=== PATIENT | male | born 1955 | race Caucasian/White ===

== ENCOUNTER → 2016-05-08 | Outpatient (CLI) | payer MEDICARE, BC | LOC: MW.CHIM 08:00 | PROVIDERS: ATTEND Internal Medicine | DX: Z51.81 Encounter for therapeutic drug level monitoring (principal); Z79.01 Long term (current) use of anticoagulants; I48.91 Unspecified atrial fibrillation | CPT/HCPCS: 85610; 99211 ==

== ENCOUNTER → 2016-06-16 | Outpatient (CLI) | payer MEDICARE, BC | LOC: MW.CHFP 11:09 | PROVIDERS: ATTEND Physician Assistant | DX: R31.9 Hematuria, unspecified (principal); N30.90 Cystitis, unspecified without hematuria | CPT/HCPCS: 81001; 87086 ==

== ENCOUNTER 2017-07-27 04:09 | Emergency (ER) | payer MEDICARE, BC ==
[2017-07-27] MEDS ORDERED: Sodium Chloride 0.9% 1,000 ML IV ONE (04:12)
[2017-07-27] MEDS ORDERED: Sodium Chloride 0.9% 2.5 ML Syringe FLUSH PRN ×2 (04:12)
[2017-07-27] MEDS ORDERED: Sodium Chloride 0.9% 10 ML Syringe FLUSH PRN (04:12)
[2017-07-27] MEDS ORDERED: Aspirin 81 MG Tab.Chew PO ONE (04:12)
[2017-07-27] MEDS ORDERED: Atropine 1 MG/ML SDV IVPUSH ONE (04:19)
[2017-07-27] MEDS ORDERED: EPINEPHrine 1 MG in Dextrose 5% in Water 99 ML IV SCH ×2 (04:30)
--- NOTE | 2017-07-27 04:38 | EDM.PDOC ---
ED HPI GENERAL MEDICAL PROBLEM - General Chief Complaint: Cardiovascular Problem Stated Complaint: CHEST PAIN Time Seen by Provider: 07/27/17 04:15 Source of Information: Reports: Patient History Limitations: Reports: No Limitations - History of Present Illness INITIAL COMMENTS - FREE TEXT/NARRATIVE: HISTORY AND PHYSICAL: History of present illness: 61-year-old male presenting to the emergency department by EMS secondary to shortness of breath. Patient states he was sitting in his chair approximately 1 AM this morning began to have some shortness of breath as well as "feeling weird/ill". Up until this he been feeling his normal self and denies any recent illness. He denies any chest pain with this shortness of breath but has felt somewhat diaphoretic area he denies any nausea, vomiting, diarrhea, or abdominal pain. In route to ED patient was found to be bradycardic with a heart rate of 29. Blood pressure was adequate at 110. On presentation emergency department patient still had a blood pressure of 1 teens systolic and was given 0.5 of atropine which increased his heart rate to mid 40s. Secondary above patient was transcutaneously paced at 60 bpm with 40 MHz. CBC, CMP, troponin, UA were all ordered. Initial EKG showed a Mobitz type II secondary AV block as well as possible inferior acute infarct. We also started a epinephrine drip at 2 mcg. Review of systems: As per history of present illness and below otherwise all systems reviewed and negative. Past medical history: As per history of present illness and as reviewed below otherwise noncontributory. Surgical history: As per history of present illness and as reviewed below otherwise noncontributory. Social history: No reported history of drug or alcohol abuse. Family history: As per history of present illness and as reviewed below otherwise noncontributory. Physical exam: HEENT: Atraumatic, normocephalic, pupils reactive, negative for conjunctival pallor or scleral icterus, mucous membranes moist, throat clear, neck supple, nontender, trachea midline. Lungs: Clear to auscultation, breath sounds equal bilaterally, chest nontender. Heart: S1S2, regular, negative for clicks, rubs, or JVD. Abdomen: Soft, nondistended, nontender. Negative for masses or hepatosplenomegaly. Negative for costovertebral tenderness. Pelvis: Stable nontender. Genitourinary: Deferred. Rectal: Deferred. Extremities: Atraumatic, negative for cords or calf pain. Neurovascular unremarkable. Neuro: Awake, alert, oriented. Cranial nerves II through XII unremarkable. Cerebellum unremarkable. Motor and sensory unremarkable throughout. Exam nonfocal. Diagnostics: CBC, CMP, troponin, EKG, chest x-ray Therapeutics: Aspirin 324 mg, atropine 0.5 mg IV, epinephrine infusion 2 mcg/ min, transcutaneous pacing 60 bpm at 40 MHZ Impression: Severe bradycardia Suspected inferior acute VA Plan: See H&P. Patient was transferred by air ambulance to [facility] Dr. Ochoa accepting physician. - Related Data Allergies Allergy/AdvReac Type Severity Reaction Status Date / Time Fish Containing Products Allergy Swelling Verified 07/27/17 04:30 Home Meds: Home Meds Calcitriol [Rocaltrol] 1 tab PO DAILY 10/22/13 [History] Diltiazem HCl [Diltiazem 24Hr ER] 1 tab PO DAILY 07/27/17 [History] Metoprolol Tartrate 1 tab PO BID 07/27/17 [History] Warfarin [Coumadin] 0.25 tab PO DAILY 07/27/17 [History] Past Medical History Cardiovascular History: Reports: Afib Respiratory History: Reports: Asthma Genitourinary History: Reports: Renal Disease Hematologic History: Reports: Blood Transfusion(s) - Infectious Disease History Infectious Disease History: Reports: Chicken Pox, Measles Social & Family History - Family History Family Medical History: Noncontributory - Caffeine Use Caffeine Use: Reports: Coffee ED ROS GENERAL - Review of Systems Review Of Systems: See Below ED EXAM, GENERAL - Physical Exam Exam: See Below Course - Vital Signs Last Recorded V/S: Last Vital Signs Temp 97.6 F 07/27/17 04:09 Pulse 32 L 07/27/17 04:09 Resp 18 07/27/17 04:09 BP 108/67 07/27/17 04:09 Pulse Ox 97 07/27/17 04:09 - Orders/Labs/Meds Orders: Active Orders 24 hr Category Date Time Status Cardiac Monitoring [RC] . DIRECTED Care 07/27/17 04:12 Ordered EKG Documentation Completion [RC] STAT Care 07/27/17 04:12 Ordered Oxygen Therapy [RC] ASDIRECTED Care 07/27/17 04:12 Ordered Pulse Oximetry [RC] ASDIRECTED Care 07/27/17 04:12 Ordered Chest 1V Frontal [CR] Stat Exams 07/27/17 04:12 Ordered CBC WITH AUTO DIFF [HEME] Stat Lab 07/27/17 04:12 Ordered COMPREHENSIVE METABOLIC PN,CMP [CHEM] Stat Lab 07/27/17 04:12 Ordered TROPONIN I [CHEM] Stat Lab 07/27/17 04:12 Ordered UA W/MICROSCOPIC [URIN] Stat Lab 07/27/17 04:13 Ordered EPINEPHrine 1 MG in D5W @ 0.1 MCG/KG/MIN(100ml) Med 07/27/17 04:30 Ordered EPINEPHrine [Adrenalin] 1 mg Dextrose 5% in Water 99 ml IV TITRATE Sodium Chloride 0.9% [Normal Saline] 1,000 ml Med 07/27/17 04:12 Ordered IV .Bolus Sodium Chloride 0.9% [Saline Flush] Med 07/27/17 04:12 Ordered 10 ml FLUSH ASDIRECTED PRN Sodium Chloride 0.9% [Saline Flush] Med 07/27/17 04:12 Ordered 2.5 ml FLUSH ASDIRECTED PRN Sodium Chloride 0.9% [Saline Flush] Med 07/27/17 04:12 Ordered 2.5 ml FLUSH ASDIRECTED PRN Saline Lock Insert [OM.PC] Stat Oth 07/27/17 04:12 Ordered Medication Orders Sodium Chloride (Normal Saline) 1,000 mls @ 999 mls/hr IV .Bolus ONE Stop: 07/27/17 05:12 Last Admin: 07/27/17 04:17 Dose: 999 mls/hr Sodium Chloride (Saline Flush) 2.5 ml FLUSH ASDIRECTED PRN PRN Reason: Keep Vein Open Last Admin: 07/27/17 04:25 Dose: 2.5 ml Sodium Chloride (Saline Flush) 10 ml FLUSH ASDIRECTED PRN PRN Reason: Keep Vein Open Last Admin: 07/27/17 04:25 Dose: 10 ml Sodium Chloride (Saline Flush) 2.5 ml FLUSH ASDIRECTED PRN PRN Reason: Keep Vein Open Last Admin: 07/27/17 04:25 Dose: 2.5 ml Meds: Medications Generic Name Dose Route Start Last Admin Trade Name Freq PRN Reason Stop Dose Admin Sodium Chloride 1,000 mls @ 999 mls/hr 07/27/17 04:12 07/27/17 04:17 Normal Saline IV 07/27/17 05:12 999 mls/hr .Bolus ONE Administration Sodium Chloride 2.5 ml 07/27/17 04:12 07/27/17 04:25 Saline Flush FLUSH 2.5 ml ASDIRECTED PRN Administration Keep Vein Open Sodium Chloride 10 ml 07/27/17 04:12 07/27/17 04:25 Saline Flush FLUSH 10 ml ASDIRECTED PRN Administration Keep Vein Open Sodium Chloride 2.5 ml 07/27/17 04:12 07/27/17 04:25 Saline Flush FLUSH 2.5 ml ASDIRECTED PRN Administration Keep Vein Open Discontinued Medications Generic Name Dose Route Start Last Admin Trade Name Freq PRN Reason Stop Dose Admin Aspirin 324 mg 07/27/17 04:12 07/27/17 04:24 Aspirin PO 07/27/17 04:13 324 mg ONETIME ONE Administration Atropine Sulfate 0.5 mg 07/27/17 04:19 Atropine 1 Mg/Ml IVPUSH 07/27/17 04:20 ONETIME ONE Departure - Departure Time of Disposition: 04:45 Disposition: DC/Tfer to Other 70 Reason for Transfer *Q: Other (Possible primary PCI indicated and pacer) Condition: Critical Clinical Impression: Severe sinus bradycardia - My Orders Last 24 Hours: My Active Orders 07/27/17 04:12 Cardiac Monitoring [RC] . DIRECTED EKG Documentation Completion [RC] STAT Oxygen Therapy [RC] ASDIRECTED Pulse Oximetry [RC] ASDIRECTED Chest 1V Frontal [CR] Stat CBC WITH AUTO DIFF [HEME] Stat COMPREHENSIVE METABOLIC PN,CMP [CHEM] Stat TROPONIN I [CHEM] Stat Sodium Chloride 0.9% [Normal Saline] 1,000 ml IV .Bolus Sodium Chloride 0.9% [Saline Flush] 10 ml FLUSH ASDIRECTED PRN Sodium Chloride 0.9% [Saline Flush] 2.5 ml FLUSH ASDIRECTED PRN Sodium Chloride 0.9% [Saline Flush] 2.5 ml FLUSH ASDIRECTED PRN Saline Lock Insert [OM.PC] Stat 07/27/17 04:13 UA W/MICROSCOPIC [URIN] Stat 07/27/17 04:30 EPINEPHrine 1 MG in D5W @ 0.1 MCG/KG/MIN(100ml) EPINEPHrine [Adrenalin] 1 mg Dextrose 5% in Water 99 ml IV TITRATE - Assessment/Plan Last 24 Hours: My Active Orders 07/27/17 04:12 Cardiac Monitoring [RC] . DIRECTED EKG Documentation Completion [RC] STAT Oxygen Therapy [RC] ASDIRECTED Pulse Oximetry [RC] ASDIRECTED Chest 1V Frontal [CR] Stat CBC WITH AUTO DIFF [HEME] Stat COMPREHENSIVE METABOLIC PN,CMP [CHEM] Stat TROPONIN I [CHEM] Stat Sodium Chloride 0.9% [Normal Saline] 1,000 ml IV .Bolus Sodium Chloride 0.9% [Saline Flush] 10 ml FLUSH ASDIRECTED PRN Sodium Chloride 0.9% [Saline Flush] 2.5 ml FLUSH ASDIRECTED PRN Sodium Chloride 0.9% [Saline Flush] 2.5 ml FLUSH ASDIRECTED PRN Saline Lock Insert [OM.PC] Stat 07/27/17 04:13 UA W/MICROSCOPIC [URIN] Stat 07/27/17 04:30 EPINEPHrine 1 MG in D5W @ 0.1 MCG/KG/MIN(100ml) EPINEPHrine [Adrenalin] 1 mg Dextrose 5% in Water 99 ml IV TITRATE
[2017-07-27] MEDS ORDERED: EPINEPHRINE IV SCH (04:45)
[2017-07-27] MEDS ORDERED: D5W IV SCH (04:45)
[2017-07-27 04:59] LABS: CHLORIDE,CL 98 mmol/L (98-107); SODIUM,NA 137 mmol/L (136-148)
[2017-07-27 05:44] VITALS: BP 113/71
[2017-07-27] MEDS ORDERED: Atropine 0.1 MG/ML 10 ML Syringe ONE (09:00)
--- NOTE | 2017-07-28 14:14 | CR ---
EXAM DATE: 07/27/17 PATIENT'S AGE: 61 Patient: HUMBERTO DOUGHERTY Facility: [place], [place] Site . Site : 1955 Study: XRay Chest [id number]/28/2018 4:35:46 AM Ordering Physician: Doctor Perry Final Report: INDICATION: Bradycardia. Chest pain. TECHNIQUE: Chest radiograph 1 view COMPARISON: 03/31/2016. FINDINGS: Heart size remains enlarged with senescent calcifications of the aortic arch. Patchy opacification in the left upper lung zone, lateral to the left atrial appendage. Right hemithorax remains clear. No pneumothorax or pleural effusion. Old left clavicle fracture deformity. IMPRESSION: 1. Cardiomegaly with left upper lung zone infiltrate. Recommend followup imaging in 2-4 weeks. Dictated by Florin Munroe MD @ 07/27/2017 5:24:00 AM Dictated by: Florin Murnoe MD @ 07/27/2017 05:24:09 (Electronic Signature) Report Signed by Proxy. AMRITA
== END 2017-07-27 05:20 | disposition other institution (70) ==
LOC: MW.ED 04:09
DX: R00.1 Bradycardia, unspecified (principal); I48.91 Unspecified atrial fibrillation; Z91.013 Allergy to seafood; Z79.899 Other long term (current) drug therapy
CPT/HCPCS: 36415; 71045; 80053; 84484; 85025; 93005; 96365; 96375; 99285; A9270; J0171; J0461; J7040; J7060

== ENCOUNTER 2017-08-03 09:03 | Emergency (ER) | payer MEDICARE, BC ==
[2017-08-03] MEDS ORDERED: Insulin Regular, Human 100 Units/ML 10 ML Vial IVPUSH ONE (09:19)
[2017-08-03] MEDS ORDERED: 50% Dextrose in Water 50 ML Syringe IVPUSH ONE (09:19)
[2017-08-03] MEDS ORDERED: Calcium Chloride 10% 1 GM/10 ML Syringe IVPUSH ONE (09:19)
[2017-08-03] MEDS ORDERED: Sodium Bicarbonate 8.4% 50 MEQ/50 ML Syringe IVPUSH ONE (09:19)
[2017-08-03] MEDS ORDERED: Sodium Chloride 0.9% 2.5 ML Syringe FLUSH PRN (09:20)
[2017-08-03] MEDS ORDERED: Sodium Chloride 0.9% 10 ML Syringe FLUSH PRN (09:20)
--- NOTE | 2017-08-03 09:24 | EDM.PDOC ---
ED HPI GENERAL MEDICAL PROBLEM - General Chief Complaint: General Stated Complaint: PER PT. HE WAS TOLD TO COME TO THE ER Time Seen by Provider: 08/03/17 09:18 - History of Present Illness INITIAL COMMENTS - FREE TEXT/NARRATIVE: HISTORY AND PHYSICAL: History of present illness: Patient's 61-year-old white male history of chronic renal failure was dialyzed 3 times weekly his last successful dialysis Thursday who was sent here today to facilitate transfer for a nonfunctional presumptively clotted AV fistula in his left arm was also noted to have potassium is an outpatient of 5.8 patient has no specific complaints other than some generalized weakness Review of systems: As per history of present illness and below otherwise all systems reviewed and negative. Past medical history: As per history of present illness and as reviewed below otherwise noncontributory. Surgical history: As per history of present illness and as reviewed below otherwise noncontributory. Social history: No reported history of drug or alcohol abuse. Family history: As per history of present illness and as reviewed below otherwise noncontributory. Physical exam: HEENT: Atraumatic, normocephalic, pupils reactive, negative for scleral icterus , mucous membranes moist, throat clear, neck supple, nontender, trachea midline. Lungs: Clear to auscultation, breath sounds equal bilaterally, chest nontender. Heart: S1S2, regular, negative for clicks, rubs, or JVD. Abdomen: Soft, nondistended, nontender. Negative for masses or hepatosplenomegaly. Negative for costovertebral tenderness. Pelvis: Stable nontender. Genitourinary: Deferred. Rectal: Deferred. Extremities: Atraumatic, negative for cords or calf pain. Neurovascular unremarkable. Neuro: Awake, alert, oriented. Cranial nerves II through XII unremarkable. Cerebellum unremarkable. Motor and sensory unremarkable throughout. Exam nonfocal. Diagnostics: CBC CMP EKG Therapeutics: Saline lock 1 amp sodium bicarbonate 1 amp calcium 1 amp D50 and 10 units regular insulin IV Impression: #1 nonfunctional AV fistula #2 hyperkalemia #3 chronic renal failure Definitive disposition and diagnosis as appropriate pending reevaluation and review of above. - Related Data Allergies Allergy/AdvReac Type Severity Reaction Status Date / Time Fish Containing Products Allergy Swelling Verified 07/27/17 04:30 Home Meds: Home Meds Calcitriol [Rocaltrol] 1 tab PO DAILY 10/22/13 [History] Diltiazem HCl [Diltiazem 24Hr ER] 1 tab PO DAILY 07/27/17 [History] Metoprolol Tartrate 1 tab PO BID 07/27/17 [History] Warfarin [Coumadin] 0.25 tab PO DAILY 07/27/17 [History] Past Medical History Cardiovascular History: Reports: Afib Respiratory History: Reports: Asthma Genitourinary History: Reports: Renal Disease Hematologic History: Reports: Blood Transfusion(s) - Infectious Disease History Infectious Disease History: Reports: Chicken Pox, Measles Social & Family History - Family History Family Medical History: Noncontributory - Caffeine Use Caffeine Use: Reports: Coffee ED ROS GENERAL - Review of Systems Review Of Systems: ROS reveals no pertinent complaints other than HPI. ED EXAM, GENERAL - Physical Exam Exam: See Below (See dictation) Course - Orders/Labs/Meds Orders: Active Orders 24 hr Category Date Time Status EKG Documentation Completion [RC] STAT Care 08/03/17 09:20 Ordered CBC WITH AUTO DIFF [HEME] Stat Lab 08/03/17 09:20 Ordered COMPREHENSIVE METABOLIC PN,CMP [CHEM] Stat Lab 08/03/17 09:20 Ordered Calcium Chloride [Calcium Chloride 10%] Med 08/03/17 09:19 Once 1 gm IVPUSH ONETIME ONE Dextrose 50% in Water Med 08/03/17 09:19 Once 50 ml IVPUSH ONETIME ONE Insulin Regular, Human [NovoLIN R] Med 08/03/17 09:19 Once 10 unit IVPUSH ONETIME ONE Sodium Bicarbonate [Sodium Bicarbonate 8.4%] Med 08/03/17 09:19 Once 50 meq IVPUSH ONETIME ONE Sodium Chloride 0.9% [Saline Flush] Med 08/03/17 09:20 Ordered 10 ml FLUSH ASDIRECTED PRN Sodium Chloride 0.9% [Saline Flush] Med 08/03/17 09:20 Ordered 2.5 ml FLUSH ASDIRECTED PRN Saline Lock Insert [OM.PC] Stat Oth 08/03/17 09:20 Ordered Medication Orders Calcium Chloride (Calcium Chloride 10%) 1 gm IVPUSH ONETIME ONE Stop: 08/03/17 09:20 Dextrose/Water (Dextrose 50% In Water) 50 ml IVPUSH ONETIME ONE Stop: 08/03/17 09:20 Insulin Human Regular (Novolin R) 10 unit IVPUSH ONETIME ONE; Protocol Stop: 08/03/17 09:20 Sodium Bicarbonate (Sodium Bicarbonate 8.4%) 50 meq IVPUSH ONETIME ONE Stop: 08/03/17 09:20 Sodium Chloride (Saline Flush) 10 ml FLUSH ASDIRECTED PRN PRN Reason: Keep Vein Open Sodium Chloride (Saline Flush) 2.5 ml FLUSH ASDIRECTED PRN PRN Reason: Keep Vein Open Meds: Medications Generic Name Dose Route Start Last Admin Trade Name Freq PRN Reason Stop Dose Admin Calcium Chloride 1 gm 08/03/17 09:19 Calcium Chloride 10% IVPUSH 08/03/17 09:20 ONETIME ONE Dextrose/Water 50 ml 08/03/17 09:19 Dextrose 50% In Water IVPUSH 08/03/17 09:20 ONETIME ONE Insulin Human Regular 10 unit 08/03/17 09:19 Novolin R IVPUSH 08/03/17 09:20 ONETIME ONE Protocol Sodium Bicarbonate 50 meq 08/03/17 09:19 Sodium Bicarbonate 8.4% IVPUSH 08/03/17 09:20 ONETIME ONE Sodium Chloride 10 ml 08/03/17 09:20 Saline Flush FLUSH ASDIRECTED PRN Keep Vein Open Sodium Chloride 2.5 ml 08/03/17 09:20 Saline Flush FLUSH ASDIRECTED PRN Keep Vein Open Departure - Departure Time of Disposition: 09:24 Disposition: DC/Tfer to Acute Hospital 02 Condition: Good Clinical Impression: Chronic renal failure, Hyperkalemia, AV fistula occlusion - Discharge Information Referrals: PCP,None [Primary Care Provider] - - My Orders Last 24 Hours: My Active Orders 08/03/17 09:19 Calcium Chloride [Calcium Chloride 10%] 1 gm IVPUSH ONETIME ONE Dextrose 50% in Water 50 ml IVPUSH ONETIME ONE Insulin Regular, Human [NovoLIN R] 10 unit IVPUSH ONETIME ONE Sodium Bicarbonate [Sodium Bicarbonate 8.4%] 50 meq IVPUSH ONETIME ONE 08/03/17 09:20 EKG Documentation Completion [RC] STAT CBC WITH AUTO DIFF [HEME] Stat COMPREHENSIVE METABOLIC PN,CMP [CHEM] Stat Sodium Chloride 0.9% [Saline Flush] 10 ml FLUSH ASDIRECTED PRN Sodium Chloride 0.9% [Saline Flush] 2.5 ml FLUSH ASDIRECTED PRN Saline Lock Insert [OM.PC] Stat - Assessment/Plan Last 24 Hours: My Active Orders 08/03/17 09:19 Calcium Chloride [Calcium Chloride 10%] 1 gm IVPUSH ONETIME ONE Dextrose 50% in Water 50 ml IVPUSH ONETIME ONE Insulin Regular, Human [NovoLIN R] 10 unit IVPUSH ONETIME ONE Sodium Bicarbonate [Sodium Bicarbonate 8.4%] 50 meq IVPUSH ONETIME ONE 08/03/17 09:20 EKG Documentation Completion [RC] STAT CBC WITH AUTO DIFF [HEME] Stat COMPREHENSIVE METABOLIC PN,CMP [CHEM] Stat Sodium Chloride 0.9% [Saline Flush] 10 ml FLUSH ASDIRECTED PRN Sodium Chloride 0.9% [Saline Flush] 2.5 ml FLUSH ASDIRECTED PRN Saline Lock Insert [OM.PC] Stat
[2017-08-03 10:54] VITALS: BP 134/88
== END 2017-08-03 10:30 ==
LOC: MW.ED 09:03
DX: T82.898A Other specified complication of vascular prosthetic devices, implants and grafts, initial encounter (principal); N18.9 Chronic kidney disease, unspecified; E87.5 Hyperkalemia; I48.91 Unspecified atrial fibrillation; J45.909 Unspecified asthma, uncomplicated; Z99.2 Dependence on renal dialysis; Z91.013 Allergy to seafood; Z79.01 Long term (current) use of anticoagulants; Z79.899 Other long term (current) drug therapy
CPT/HCPCS: 80053; 82962; 85025; 93005; 96374; 96375; 99285; J7060; J1815-GY

== ENCOUNTER 2018-11-05 11:40 | Emergency (ER) | payer MEDICARE, BC ==
[2018-11-05] MEDS ORDERED: Albuterol/Ipratropium 3.0-0.5 MG/3 ML Neb Soln NEB ONE (12:03)
[2018-11-05] MEDS ORDERED: Metoprolol Tartrate 5 MG/5 ML SDV IVPUSH ONE (12:15)
[2018-11-05 12:33] LABS: CARBON DIOXIDE,CO2 35.6 mmol/L (21.0-32.0); POTASSIUM,K 3.8 mmol/L (3.5-5.1)
--- NOTE | 2018-11-05 12:44 | EDM.PDOC ---
ED HPI GENERAL MEDICAL PROBLEM - General Chief Complaint: Respiratory Problem Stated Complaint: TROUBLE BREATHING, COUGH Time Seen by Provider: 11/05/18 11:43 Source of Information: Reports: Patient History Limitations: Reports: No Limitations - History of Present Illness INITIAL COMMENTS - FREE TEXT/NARRATIVE: History of present illness: []Patient has been short of breath over a week and became worse after dialysis today. He's had a mild productive cough. He denies any chest pain, edema or nausea, vomiting or dizziness. He usually dialyzed 3 times a week. He has a history of atrial fibrillation. Review of systems: As per history of present illness and below otherwise all systems reviewed and negative. Past medical history: As per history of present illness and as reviewed below otherwise noncontributory. Surgical history: As per history of present illness and as reviewed below otherwise noncontributory. Social history: No reported history of drug or alcohol abuse. Family history: As per history of present illness and as reviewed below otherwise noncontributory. Physical exam: General: Well developed, well nourished in NAD HEENT: Atraumatic, normocephalic, pupils reactive, negative for conjunctival pallor or scleral icterus, mucous membranes moist, throat clear, neck supple, nontender, trachea midline. Lungs: Basilar rhonchi and diffuse wheezing, no accessory muscle use, , breath sounds equal bilaterally, chest nontender. Heart: S1S2, regular, negative for clicks, rubs, or JVD. Abdomen: NABS, Soft, nondistended, nontender. Negative for masses or hepatosplenomegaly. Negative for costovertebral tenderness. Pelvis: Stable nontender. Genitourinary: Deferred. Rectal: Deferred. Extremities: Atraumatic, negative for cords or calf pain. Neurovascular unremarkable. Neuro: Awake, alert, oriented. Cranial nerves II through XII unremarkable. Cerebellum unremarkable. Motor and sensory unremarkable throughout. Exam nonfocal. Skin:warm and dry Diagnostics: EDC, chemistry, BNP, lactate, chest x-ray and EKG Therapeutics: DuoNeb with improvement ED Course: Improved final signs the patient feels better and wants to go home he does not want admission. I will cover him with antibiotics. He states he will return to the ER over the weekend if any symptoms worsen or change. Impression: Acute bronchitis Prescriptions: Levaquin Plan: Take meds as directed, follow up with your primary care physician, return to ER if symptoms worsen or change. Definitive disposition and diagnosis as appropriate pending reevaluation and review of above. - Related Data Allergies Allergy/AdvReac Type Severity Reaction Status Date / Time Fish Containing Products Allergy Swelling Verified 11/05/18 11:46 walnut Allergy Other Verified 11/05/18 11:46 Home Meds: Home Meds Metoprolol Tartrate 1 tab PO BID 07/27/17 [History] Calcium Acetate [PhosLo] 667 mg PO TID 11/05/18 [History] Pantoprazole Sodium [Protonix] 20 mg PO DAILY 11/05/18 [History] levoFLOXacin [Levaquin] 500 mg PO DAILY #7 tab 11/05/18 [Rx] Past Medical History Cardiovascular History: Reports: Afib, Hypertension Respiratory History: Reports: Asthma Genitourinary History: Reports: Renal Disease Hematologic History: Reports: Blood Transfusion(s) - Infectious Disease History Infectious Disease History: Reports: Chicken Pox, Measles - Past Surgical History HEENT Surgical History: Reports: Tonsillectomy Social & Family History - Family History Family Medical History: Noncontributory - Tobacco Use Smoking Status *Q: Never Smoker - Caffeine Use Caffeine Use: Reports: Coffee - Recreational Drug Use Recreational Drug Use: No ED ROS GENERAL - Review of Systems Review Of Systems: See Below ED EXAM, GENERAL - Physical Exam Exam: See Below Course - Vital Signs Last Recorded V/S: Last Vital Signs Temp 97.5 F 11/05/18 11:42 Pulse 97 11/05/18 12:30 Resp 22 H 11/05/18 12:30 BP 148/80 H 11/05/18 12:30 Pulse Ox 97 11/05/18 12:30 - Orders/Labs/Meds Orders: Active Orders 24 hr Category Date Time Status Cardiac Monitoring [RC] . DIRECTED Care 11/05/18 12:04 Active EKG Documentation Completion [RC] STAT Care 11/05/18 12:04 Active RT Aerosol Therapy [RC] ASDIRECTED Care 11/05/18 12:04 Active Chest 1V Frontal [CR] Stat Exams 11/05/18 12:04 Ordered Labs: Laboratory Tests 11/05/18 11/05/18 11/05/18 Range/Units 11:45 11:45 11:45 WBC 4.92 (4.0-11.0) K/uL RBC 3.46 L (4.50-5.90) M/uL Hgb 12.0 L (13.0-17.0) g/dL Hct 37.2 L (38.0-50.0) % MCV 107.5 H (80.0-98.0) fL MCH 34.7 H (27.0-32.0) pg MCHC 32.3 (31.0-37.0) g/dL RDW Std Deviation 61.0 (28.0-62.0) fl RDW Coeff of Nii 16 H (11.0-15.0) % Plt Count 162 (150-400) K/uL MPV 10.20 (7.40-12.00) fL Neut % (Auto) 75.9 (48.0-80.0) % Lymph % (Auto) 9.3 L (16.0-40.0) % [place] % (Auto) 12.2 (0.0-15.0) % Eos % (Auto) 2.2 (0.0-7.0) % Baso % (Auto) 0.4 (0.0-1.5) % Neut # (Auto) 3.7 (1.4-5.7) K/uL Lymph # (Auto) 0.5 L (0.6-2.4) K/uL [place] # (Auto) 0.6 (0.0-0.8) K/uL Eos # (Auto) 0.1 (0.0-0.7) K/uL Baso # (Auto) 0.0 (0.0-0.1) K/uL Nucleated RBC % 0.0 /100WBC Nucleated RBCs # 0 K/uL Lactate 2.1 H (0.20-2.00) mmol/L Sodium 141 (136-148) mmol/L Potassium 3.8 (3.5-5.1) mmol/L Chloride 97 L (98-107) mmol/L Carbon Dioxide 35.6 H (21.0-32.0) mmol/L BUN 8 (7.0-18.0) mg/dL Creatinine 2.8 H (0.8-1.3) mg/dL Est Cr Clr Drug Dosing 26.80 mL/min Estimated GFR (MDRD) 23.2 ml/min Glucose 90 (74-106) mg/dL Calcium 10.1 (8.5-10.1) mg/dL Total Bilirubin 0.8 (0.2-1.0) mg/dL AST 17 (15-37) IU/L ALT 11 L (14-63) IU/L Alkaline Phosphatase 86 (46-116) U/L Total Protein 7.8 (6.4-8.2) g/dL Albumin 3.6 (3.4-5.0) g/dL Globulin 4.2 H (2.6-4.0) g/dL Albumin/Globulin Ratio 0.9 (0.9-1.6) Meds: Medications Discontinued Medications Generic Name Dose Route Start Last Admin Trade Name Freq PRN Reason Stop Dose Admin Albuterol/Ipratropium 3 ml 11/05/18 12:03 11/05/18 12:08 Duoneb 3.0-0.5 Mg/3 Ml NEB 11/05/18 12:04 3 ml ONETIME ONE Administration Metoprolol Tartrate 5 mg 11/05/18 12:15 Lopressor IVPUSH 11/05/18 12:16 ONETIME ONE Departure - Departure Time of Disposition: 13:01 Disposition: Home, Self-Care 01 Condition: Good Clinical Impression: Bronchitis - Discharge Information *PRESCRIPTION DRUG MONITORING PROGRAM REVIEWED*: No *COPY OF PRESCRIPTION DRUG MONITORING REPORT IN PATIENT DILEEP: No Prescriptions: levoFLOXacin [Levaquin] 500 mg PO DAILY #7 tab Referrals: PCP,Unknown [Primary Care Provider] - Forms: ED Department Discharge Additional Instructions: The following information is given to patients seen in the emergency department who are being discharged to home. This information is to outline your options for follow-up care. We provide all patients seen in our emergency department with a follow-up referral. The need for follow-up, as well as the timing and circumstances, are variable depending upon the specifics of your emergency department visit. If you don't have a primary care physician on staff, we will provide you with a referral. We always advise you to contact your personal physician following an emergency department visit to inform them of the circumstance of the visit and for follow-up with them and/or the need for any referrals to a consulting specialist. The emergency department will also refer you to a specialist when appropriate. This referral assures that you have the opportunity for follow-up care with a specialist. All of these measure are taken in an effort to provide you with optimal care, which includes your follow-up. Under all circumstances we always encourage you to contact your private physician who remains a resource for coordinating your care. When calling for follow-up care, please make the office aware that this follow-up is from your recent emergency room visit. If for any reason you are refused follow-up, please contact the [facility] Emergency Department at and asked to speak to the emergency department charge nurse. Take meds as directed, follow up with your primary care physician, return to ER if symptoms worsen or change. [facility] [address] [place] [id number] - My Orders Last 24 Hours: My Active Orders 11/05/18 12:04 Cardiac Monitoring [RC] . DIRECTED EKG Documentation Completion [RC] STAT RT Aerosol Therapy [RC] ASDIRECTED Chest 1V Frontal [CR] Stat - Assessment/Plan Last 24 Hours: My Active Orders 11/05/18 12:04 Cardiac Monitoring [RC] . DIRECTED EKG Documentation Completion [RC] STAT RT Aerosol Therapy [RC] ASDIRECTED Chest 1V Frontal [CR] Stat
[2018-11-05 13:32] VITALS: BP 145/95
--- NOTE | 2018-11-05 13:58 | CR ---
Chest: Portable view of the chest was obtained. Comparison: Prior chest x-ray 07/27/17. Parenchymal density noted within the left upper chest slightly changed in configuration from prior study. Current finding most likely due to thick area of scarring. Lungs otherwise are clear. Heart size and mediastinum are normal for portable technique. Old healed left clavicle deformity from previous fracture is noted. Impression: 1. Density within the left upper chest believed to represent scarring. Chest CT could be obtained to make sure this has the appearance of scarring by that modality. 2. Other incidental findings. Nothing acute is appreciated. Diagnostic code #3 MTDD
== END 2018-11-05 13:32 | disposition home or self-care (01) ==
LOC: MW.ED 11:40
DX: J20.9 Acute bronchitis, unspecified (principal); I10 Essential (primary) hypertension; I48.91 Unspecified atrial fibrillation; Z91.013 Allergy to seafood; Z91.018 Allergy to other foods; Z79.899 Other long term (current) drug therapy; Z98.890 Other specified postprocedural states
CPT/HCPCS: 36415; 71045; 71045-26; 80053; 83605; 85025; 93005; 94640; 99285-25; J7620-GY

== ENCOUNTER 2018-12-06 05:14 | Emergency (ER) | payer MEDICARE, BC ==
[2018-12-06] MEDS ORDERED: Albuterol/Ipratropium 3.0-0.5 MG/3 ML Neb Soln ONE (05:19)
[2018-12-06] MEDS ORDERED: Sodium Chloride 0.9% 2.5 ML Syringe FLUSH PRN (05:28)
[2018-12-06] MEDS ORDERED: Sodium Chloride 0.9% 10 ML Syringe FLUSH PRN (05:28)
[2018-12-06] MEDS ORDERED: methylPREDNISolone Sodium Succinate 125 MG/2 ML SDV IVPUSH ONE (05:28)
--- NOTE | 2018-12-06 05:34 | EDM.PDOC ---
ED HPI GENERAL MEDICAL PROBLEM - General Chief Complaint: Respiratory Problem Stated Complaint: SHORTNESS OF BREATH Time Seen by Provider: 12/06/18 05:18 - History of Present Illness INITIAL COMMENTS - FREE TEXT/NARRATIVE: HISTORY AND PHYSICAL: History of present illness: The patient is a 63-year-old male with a history of A. fib for which he takes diltiazem and Coumadin in stage renal disease for which he does dialysis Thursday and Thursday, he is scheduled in just over an hour here at our facility for his daily dialysis, congestive heart failure, hypertension and COPD for which she uses an inhaler and who presents with shortness of breath that started last evening and seemed to worsen this morning. He denies any productive cough or fever and he has no chest pain or palpitations. He says that he has some bilateral leg swelling that he says usually occurs after a weekend when he needs dialysis and it is not excessive and it is bilateral. He has no calf pain. He has no abdominal pain vomiting fevers chills or flank pain. He says that he follows with Dr. Alberts at [facility] and saw him a few weeks ago and he was placed on steroid therapy and Symbicort along with his rescue inhaler and he finished the steroids over a week ago and was doing better. He says this started last evening and he doesn't recognize any particular trigger. He says it does not feel like he is retaining fluid in his lungs although he does feel like his legs are swollen today. The patient tells nursing he was using his rescue inhaler with this shortness of breath and did not feel like it was working Review of systems: As per history of present illness and below otherwise all systems reviewed and negative. Past medical history: As per history of present illness and as reviewed below otherwise noncontributory. Surgical history: As per history of present illness and as reviewed below otherwise noncontributory. Social history: No reported history of drug or alcohol abuse. Family history: As per history of present illness and as reviewed below otherwise noncontributory. Physical exam: General: Well-developed well-nourished man who is speaking without breathlessness and was vitals are reviewed by me. He is cooperative and interactive. HEENT: Atraumatic, normocephalic, pupils reactive, negative for conjunctival pallor or scleral icterus, mucous membranes moist, throat clear, neck supple, nontender, trachea midline. Lungs: Clear to auscultation without wheezing or stridor but he does have diminished air exchange throughout all lung woody, there is no work of breathing, breath sounds equal bilaterally, chest nontender. Heart: S1S2, regular rate and irregular rhythm consistent with his history of A. fib. There are no overt murmurs Abdomen: Soft, nondistended, nontender. Negative for costovertebral tenderness. Pelvis: Stable nontender. Genitourinary: Deferred. Rectal: Deferred. Extremities: Atraumatic, negative for cords or calf pain. Neurovascular unremarkable. There is bilateral lower extremity dependent edema noted at the ankles and at the distal legs bilaterally but it does not extend up the leg and there is no leg asymmetry. The patient has an AV dialysis graft at his left forearm with a positive thrill Neuro: Awake, alert, oriented. Cranial nerves II through XII unremarkable. Cerebellum unremarkable. Motor and sensory unremarkable throughout. Exam nonfocal. Skin: No evidence of any overt rashes or lesions and he is not diaphoretic Diagnostics: EKG chest x-ray CBC CMP BNP INR Therapeutics: IV O2 monitor Solu-Medrol duo neb According to the computer the patient was seen here on November 05 for similar presentation and was given a DuoNeb and felt better and no further workup was performed. It is unclear from the patient's history whether or not he saw his provider at [facility] after this ED visit but from the timing he is describing it does sound like this is the case. He tells me that his Symbicort has finished and he was not told to refill it. He does not have a nebulizer machine at home but does use his rescue inhaler. He tells nursing that he did use his rescue inhaler and did not feel like it was working Discussed all testing results with the patient as well as the dialysis unit. He says that his Coumadin is controlled by [facility] in [place] and the dialysis unit said that they can contact them about recommendations for how many days to hold his Coumadin. They also tell me that he has been drinking a lot of fluids lately and he has not listened to them to reduce his fluid intake and they have been taking off many pounds of water weight over the last few weeks. I did talk to him about reducing his fluid oral intake but he doesn't seem to quite understand for ongoing. We will packaged him and get him to dialysis now as the most important thing that he needs is to get his dialysis for both weight and numbers and the dialysis unit no C has labs that they can check to make those adjustments. They feel comfortable with him going down there. I have told both the dialysis nurse and the patient that if after dialysis he still feels symptomatic come back up and to be re-seen in the ED. Impression: Dyspnea, CHF exacerbation needing dialysis today and COPD exacerbation mild Definitive disposition and diagnosis as appropriate pending reevaluation and review of above. - Related Data Allergies Allergy/AdvReac Type Severity Reaction Status Date / Time Fish Containing Products Allergy Swelling Verified 12/06/18 05:23 walnut Allergy Other Verified 12/06/18 05:23 Home Meds: Home Meds Metoprolol Tartrate 100 tab PO BID 07/27/17 [History] Pantoprazole Sodium [Protonix] 20 mg PO DAILY 11/05/18 [History] Albuterol [Ventolin HFA] 1 puff INH ASDIRECTED PRN 12/06/18 [History] Diltiazem HCl [Diltiazem 24Hr ER] 360 mg PO DAILY 12/06/18 [History] Warfarin Sodium [Coumadin] 0 mg PO DAILY 12/06/18 [History] Past Medical History Cardiovascular History: Reports: Afib, Hypertension Respiratory History: Reports: Asthma Genitourinary History: Reports: Renal Disease Hematologic History: Reports: Blood Transfusion(s) - Infectious Disease History Infectious Disease History: Reports: Chicken Pox, Measles - Past Surgical History HEENT Surgical History: Reports: Tonsillectomy Social & Family History - Family History Family Medical History: Noncontributory - Caffeine Use Caffeine Use: Reports: Coffee ED ROS GENERAL - Review of Systems Review Of Systems: ROS reveals no pertinent complaints other than HPI. ED EXAM, GENERAL - Physical Exam Exam: See Below (See dictation) Course - Vital Signs Last Recorded V/S: Last Vital Signs Temp 36.3 C 12/06/18 06:30 Pulse 69 12/06/18 06:30 Resp 20 12/06/18 06:30 BP 140/82 12/06/18 06:30 Pulse Ox 94 L 12/06/18 06:30 - Orders/Labs/Meds Orders: Active Orders 24 hr Category Date Time Status Cardiac Monitoring [RC] . DIRECTED Care 12/06/18 05:27 Active Oxygen Therapy, ED [RC] ASDIRECTED Care 12/06/18 05:27 Active Pulse Oximetry [RC] ASDIRECTED Care 12/06/18 05:27 Active B-TYPE NATRIURETIC PEPTIDE,BNP [CHEM] Stat Lab 12/06/18 06:00 Received Sodium Chloride 0.9% [Saline Flush] Med 12/06/18 05:28 Active 10 ml FLUSH ASDIRECTED PRN Sodium Chloride 0.9% [Saline Flush] Med 12/06/18 05:28 Active 2.5 ml FLUSH ASDIRECTED PRN Saline Lock Insert [OM.PC] Stat Oth 12/06/18 05:27 Ordered Medication Orders Sodium Chloride (Saline Flush) 10 ml FLUSH ASDIRECTED PRN PRN Reason: Keep Vein Open Sodium Chloride (Saline Flush) 2.5 ml FLUSH ASDIRECTED PRN PRN Reason: Keep Vein Open Labs: Laboratory Tests 12/06/18 12/06/18 12/06/18 Range/Units 06:00 06:00 06:00 WBC 9.36 (4.0-11.0) K/uL RBC 2.93 L (4.50-5.90) M/uL Hgb 9.8 L (13.0-17.0) g/dL Hct 31.6 L (38.0-50.0) % MCV 107.8 H (80.0-98.0) fL MCH 33.4 H (27.0-32.0) pg MCHC 31.0 (31.0-37.0) g/dL RDW Std Deviation 64.4 H (28.0-62.0) fl RDW Coeff of Nii 17 H (11.0-15.0) % Plt Count 243 (150-400) K/uL MPV 9.90 (7.40-12.00) fL Neut % (Auto) 78.7 (48.0-80.0) % Lymph % (Auto) 11.4 L (16.0-40.0) % [place] % (Auto) 7.1 (0.0-15.0) % Eos % (Auto) 2.4 (0.0-7.0) % Baso % (Auto) 0.4 (0.0-1.5) % Neut # (Auto) 7.4 H (1.4-5.7) K/uL Lymph # (Auto) 1.1 (0.6-2.4) K/uL [place] # (Auto) 0.7 (0.0-0.8) K/uL Eos # (Auto) 0.2 (0.0-0.7) K/uL Baso # (Auto) 0.0 (0.0-0.1) K/uL Nucleated RBC % 0.0 /100WBC Nucleated RBCs # 0 K/uL INR 6.66 Sodium 137 (136-148) mmol/L Potassium 6.6 H (3.5-5.1) mmol/L Chloride 97 L (98-107) mmol/L Carbon Dioxide 29.0 (21.0-32.0) mmol/L BUN 64 H (7.0-18.0) mg/dL Creatinine 8.5 H (0.8-1.3) mg/dL Est Cr Clr Drug Dosing TNP Estimated GFR (MDRD) 6.4 ml/min Glucose 91 (74-106) mg/dL Calcium 9.4 (8.5-10.1) mg/dL Total Bilirubin 0.7 (0.2-1.0) mg/dL AST 17 (15-37) IU/L ALT 10 L (14-63) IU/L Alkaline Phosphatase 73 (46-116) U/L Total Protein 7.1 (6.4-8.2) g/dL Albumin 3.1 L (3.4-5.0) g/dL Globulin 4.0 (2.6-4.0) g/dL Albumin/Globulin Ratio 0.8 L (0.9-1.6) Meds: Medications Generic Name Dose Route Start Last Admin Trade Name Freq PRN Reason Stop Dose Admin Sodium Chloride 10 ml 12/06/18 05:28 Saline Flush FLUSH ASDIRECTED PRN Keep Vein Open Sodium Chloride 2.5 ml 12/06/18 05:28 Saline Flush FLUSH ASDIRECTED PRN Keep Vein Open Discontinued Medications Generic Name Dose Route Start Last Admin Trade Name Freq PRN Reason Stop Dose Admin Albuterol/Ipratropium Confirm 12/06/18 05:19 12/06/18 05:40 Duoneb 3.0-0.5 Mg/3 Ml Administered 12/06/18 05:20 3 ml Dose Administration 3 ml .ROUTE .STK-MED ONE Methylprednisolone Sodium Succinate 125 mg 12/06/18 05:28 12/06/18 05:40 Solu-Medrol IVPUSH 12/06/18 05:29 125 mg ONETIME ONE Administration Departure - Departure Time of Disposition: 06:51 Disposition: Home, Self-Care 01 Condition: Good Clinical Impression: COPD exacerbation, Mild congestive heart failure, Elevated INR Dyspnea Qualifiers: Dyspnea type: shortness of breath Qualified Code(s): R06.02 - Shortness of breath; R06.00 - Dyspnea, unspecified; R06.01 - Orthopnea - Discharge Information Referrals: PCP,None [Primary Care Provider] - Forms: ED Department Discharge Additional Instructions: The following information is given to patients seen in the emergency department who are being discharged to home. This information is to outline your options for follow-up care. We provide all patients seen in our emergency department with a follow-up referral. The need for follow-up, as well as the timing and circumstances, are variable depending upon the specifics of your emergency department visit. If you don't have a primary care physician on staff, we will provide you with a referral. We always advise you to contact your personal physician following an emergency department visit to inform them of the circumstance of the visit and for follow-up with them and/or the need for any referrals to a consulting specialist. The emergency department will also refer you to a specialist when appropriate. This referral assures that you have the opportunity for followup care with a specialist. All of these measure are taken in an effort to provide you with optimal care, which includes your followup. Under all circumstances we always encourage you to contact your private physician who remains a resource for coordinating your care. When calling for followup care, please make the office aware that this follow-up is from your recent emergency room visit. If for any reason you are refused follow-up, please contact the [facility] emergency department at and ask to speak to the emergency department charge nurse. [address] [place] [address] Please immediately go to dialysis to get your dialysis performed this morning as this will help correct her fluids as well as her abnormal labs. Continue using your rescue inhaler 1-2 puffs every 6 hours as needed and please take the prednisone you have been prescribed today. Please connect with your provider at [facility] for reevaluation and further care. You need to hold your Coumadin dosing and the nurses in the dialysis unit will check with [facility] in [place] to see how many days their Coumadin clinic wants you to hold your Coumadin doses. Return to ER as needed and as discussed - My Orders Last 24 Hours: My Active Orders 12/06/18 05:27 Cardiac Monitoring [RC] . DIRECTED Oxygen Therapy, ED [RC] ASDIRECTED Pulse Oximetry [RC] ASDIRECTED Saline Lock Insert [OM.PC] Stat 12/06/18 05:28 Sodium Chloride 0.9% [Saline Flush] 10 ml FLUSH ASDIRECTED PRN Sodium Chloride 0.9% [Saline Flush] 2.5 ml FLUSH ASDIRECTED PRN 12/06/18 06:00 B-TYPE NATRIURETIC PEPTIDE,BNP [CHEM] Stat - Assessment/Plan Last 24 Hours: My Active Orders 12/06/18 05:27 Cardiac Monitoring [RC] . DIRECTED Oxygen Therapy, ED [RC] ASDIRECTED Pulse Oximetry [RC] ASDIRECTED Saline Lock Insert [OM.PC] Stat 12/06/18 05:28 Sodium Chloride 0.9% [Saline Flush] 10 ml FLUSH ASDIRECTED PRN Sodium Chloride 0.9% [Saline Flush] 2.5 ml FLUSH ASDIRECTED PRN 12/06/18 06:00 B-TYPE NATRIURETIC PEPTIDE,BNP [CHEM] Stat
--- NOTE | 2018-12-06 06:12 | CR ---
INDICATION: Shortness of breath; chest pain. COMPARISON: Chest radiograph July 27, 2017 and November 05, 2018; a report from a CT chest dated March 16, 2016; images of the chest CT are not available for comparison. Findings: Stable cardiomegaly. CHF. A 4.7 x 2.1 cm oval soft tissue density left upper lobe; similar in appearance when compared to July 27, 2017 chest radiograph as well as when compared to the previous report from previous chest CT. Old healed fracture of the left clavicle. No pneumothorax. Impression : 1. CHF; relatively new when compared to November 05, 2018. 2. Cardiomegaly ;stable in appearance. 3. 4.7 x 2.1 cm soft tissue density left upper lobe; stable when compared to the description of the chest CT from 2017. Dictated by Matthew Tomlin MD @ Dec 06 2018 6:06AM Signed by Dr. Matthew Tomlin @ Dec 06 2018 6:10AM
[2018-12-06 06:37] VITALS: BP 140/82; PULSE 69
[2018-12-06 06:41] LABS: BLOOD UREA NITROGEN,BUN 64 mg/dL (7.0-18.0); CHLORIDE,CL 97 mmol/L (98-107); GLUCOSE RANDOM 91 mg/dL (74-106); POTASSIUM,K 6.6 mmol/L (3.5-5.1); SODIUM,NA 137 mmol/L (136-148)
== END 2018-12-06 06:55 | disposition home or self-care (01) ==
LOC: MW.ED 05:14
DX: J44.1 Chronic obstructive pulmonary disease with (acute) exacerbation (principal); I11.0 Hypertensive heart disease with heart failure; I50.9 Heart failure, unspecified; R79.1 Abnormal coagulation profile; I48.91 Unspecified atrial fibrillation; Z91.013 Allergy to seafood; Z91.018 Allergy to other foods; Z99.2 Dependence on renal dialysis; Z79.899 Other long term (current) drug therapy; Z79.01 Long term (current) use of anticoagulants
CPT/HCPCS: 36415; 71045; 80053; 83880; 85025; 85610; 93005; 96374; 99285; J2930; 99284; J7620-GY

== ENCOUNTER 2018-12-20 02:55 | Emergency (ER) | payer MEDICARE, BC ==
[2018-12-20] MEDS ORDERED: methylPREDNISolone Sodium Succinate 125 MG/2 ML SDV ONE (02:57)
[2018-12-20] MEDS ORDERED: Albuterol/Ipratropium 3.0-0.5 MG/3 ML Neb Soln ONE (02:57)
[2018-12-20] MEDS ORDERED: methylPREDNISolone Sodium Succinate 125 MG/2 ML SDV IVPUSH ONE (03:05)
[2018-12-20] MEDS ORDERED: Albuterol/Ipratropium 3.0-0.5 MG/3 ML Neb Soln NEB ONE (03:05)
[2018-12-20] MEDS ORDERED: Sodium Chloride 0.9% 1,000 ML IV ONE (03:13)
[2018-12-20] MEDS ORDERED: Atropine 0.1 MG/ML 10 ML Syringe IVPUSH ONE ×3 (03:21→03:46)
[2018-12-20] MEDS ORDERED: 50% Dextrose in Water 50 ML Syringe IV ONE (03:30)
[2018-12-20 03:40] LABS: CARBON DIOXIDE,CO2 27.9 mmol/L (21.0-32.0); POTASSIUM,K 6.2 mmol/L (3.5-5.1)
--- NOTE | 2018-12-20 04:03 | CR ---
Indication: Shortness of breath Technique: Chest 1 view Comparison: December 06, 2018 Findings/Impression: Stable cardiomegaly. Mild pulmonary venous congestion is unchanged. New patchy opacity in the right mid lung. Persistent oval-shaped opacity in the left midlung. No pneumothorax or effusion. Impression: : New patchy opacity in the right midlung may represent infection. Cardiomegaly with mild pulmonary venous congestion, stable. Persistent oval-shaped opacity in the left midlung. Dictated by Katy Sabillon MD @ Dec 20 2018 3:59AM Signed by Dr. Katy Sabillon @ Dec 20 2018 4:01AM
[2018-12-20] MEDS ORDERED: Piperacillin/Tazobactam 2.25 GM in Sodium Chloride 0.9% 50 ML IV ONE (04:15)
--- NOTE | 2018-12-20 04:18 | EDM.PDOC ---
ED HPI GENERAL MEDICAL PROBLEM - General Chief Complaint: Respiratory Problem Stated Complaint: SHORTNESS OF BREATH Time Seen by Provider: 12/20/18 04:16 Source of Information: Reports: Patient - History of Present Illness INITIAL COMMENTS - FREE TEXT/NARRATIVE: HISTORY AND PHYSICAL: History of present illness: []Patient with end-stage renal disease on dialysis and history of CHF presents via EMS with shortness of breath since earlier today He denies fever nausea vomiting chills sweats no chest pain headache dizziness or palpitation no bowel or urine symptoms Review of systems: As per history of present illness and below otherwise all systems reviewed and negative. Past medical history: As per history of present illness and as reviewed below otherwise noncontributory. Surgical history: As per history of present illness and as reviewed below otherwise noncontributory. Social history: No reported history of drug or alcohol abuse. Family history: As per history of present illness and as reviewed below otherwise noncontributory. Physical exam: HEENT: Atraumatic, normocephalic, pupils reactive, negative for conjunctival pallor or scleral icterus, mucous membranes moist, throat clear, neck supple, nontender, trachea midline. Lungs: Diminished on right, chest nontender. Heart: S1S2, regular, negative for clicks, rubs, or JVD. Abdomen: Soft, nondistended, nontender. Negative for masses or hepatosplenomegaly. Negative for costovertebral tenderness. Pelvis: Stable nontender. Genitourinary: Deferred. Rectal: Deferred. Extremities: Atraumatic, negative for cords or calf pain. Neurovascular unremarkable. Neuro: Awake, alert, oriented. Cranial nerves II through XII unremarkable. Cerebellum unremarkable. Motor and sensory unremarkable throughout. Exam nonfocal. Diagnostics: [CBC CMP UA troponin cultures 2 EKG Chest 1 view ] Therapeutics: [ atropine 0.5 every 5 minutes when necessary Zosyn normal saline ] Calcium gluconate Impression: [ bradycardia rate 30-50 pneumonia CHF and end-stage renal disease Elevated troponin chronic history at baseline ] Definitive disposition and diagnosis as appropriate pending reevaluation and review of above. - Related Data Allergies Allergy/AdvReac Type Severity Reaction Status Date / Time Fish Containing Products Allergy Swelling Verified 12/20/18 03:01 walnut Allergy Other Verified 12/20/18 03:01 Home Meds: Home Meds Metoprolol Tartrate 100 tab PO BID 07/27/17 [History] Pantoprazole Sodium [Protonix] 20 mg PO DAILY 11/05/18 [History] Albuterol [Ventolin HFA] 1 puff INH ASDIRECTED PRN 12/06/18 [History] Diltiazem HCl [Diltiazem 24Hr ER] 360 mg PO DAILY 12/06/18 [History] Warfarin Sodium [Coumadin] 2.5 mg PO DAILY 12/06/18 [History] Past Medical History Cardiovascular History: Reports: Afib, Hypertension Respiratory History: Reports: Asthma Genitourinary History: Reports: Renal Disease Hematologic History: Reports: Blood Transfusion(s) - Infectious Disease History Infectious Disease History: Reports: Chicken Pox, Measles - Past Surgical History HEENT Surgical History: Reports: Tonsillectomy GI Surgical History: Reports: Other (See Below) Other GI Surgeries/Procedures: abdominal sx Social & Family History - Family History Family Medical History: Noncontributory - Tobacco Use Smoking Status *Q: Never Smoker - Caffeine Use Caffeine Use: Reports: Coffee - Recreational Drug Use Recreational Drug Use: No ED ROS GENERAL - Review of Systems Review Of Systems: See Below ED EXAM, GENERAL - Physical Exam Exam: See Below Course - Vital Signs Last Recorded V/S: Last Vital Signs Temp 97 F 12/20/18 02:55 Pulse 55 L 12/20/18 04:22 Resp 13 12/20/18 04:22 BP 97/61 12/20/18 04:22 Pulse Ox 95 12/20/18 04:22 - Orders/Labs/Meds Orders: Active Orders 24 hr Category Date Time Status EKG Documentation Completion [RC] STAT Care 12/20/18 02:57 Active RT Aerosol Therapy [RC] ASDIRECTED Care 12/20/18 03:05 Active B-TYPE NATRIURETIC PEPTIDE,BNP [CHEM] Stat Lab 12/20/18 03:05 Received CULTURE BLOOD [BC] Stat Lab 12/20/18 04:18 Ordered CULTURE BLOOD [BC] Stat Lab 12/20/18 04:18 Ordered UA RFX CHINTAN AND CULT IF INDIC [URIN] Stat Lab 12/20/18 02:57 Ordered Calcium Gluconate Med 12/20/18 04:31 Once 1 gm IVPUSH ONETIME ONE Piperacillin/Tazobactam [Zosyn] 2.25 gm Med 12/20/18 04:15 Active Sodium Chloride 0.9% [Normal Saline] 50 ml IV ONETIME Blood Culture x2 Reflex Set [OM.PC] Stat Oth 12/20/18 04:18 Ordered Medication Orders Piperacillin Sod/Tazobactam (Sod 2.25 gm/ Sodium Chloride) 50 mls @ 100 mls/hr IV ONETIME ONE Stop: 12/20/18 04:44 Labs: Laboratory Tests 12/20/18 12/20/18 12/20/18 Range/Units 03:05 03:05 03:05 WBC 12.87 H (4.0-11.0) K/uL RBC 3.07 L (4.50-5.90) M/uL Hgb 10.2 L (13.0-17.0) g/dL Hct 32.6 L (38.0-50.0) % MCV 106.2 H (80.0-98.0) fL MCH 33.2 H (27.0-32.0) pg MCHC 31.3 (31.0-37.0) g/dL RDW Std Deviation 65.0 H (28.0-62.0) fl RDW Coeff of Nii 17 H (11.0-15.0) % Plt Count 278 (150-400) K/uL MPV 9.80 (7.40-12.00) fL Neut % (Auto) 85.2 H (48.0-80.0) % Lymph % (Auto) 7.3 L (16.0-40.0) % [place] % (Auto) 5.7 (0.0-15.0) % Eos % (Auto) 1.6 (0.0-7.0) % Baso % (Auto) 0.2 (0.0-1.5) % Neut # (Auto) 11.0 H (1.4-5.7) K/uL Lymph # (Auto) 0.9 (0.6-2.4) K/uL [place] # (Auto) 0.7 (0.0-0.8) K/uL Eos # (Auto) 0.2 (0.0-0.7) K/uL Baso # (Auto) 0.0 (0.0-0.1) K/uL Nucleated RBC % 0.0 /100WBC Nucleated RBCs # 0 K/uL INR 3.32 Sodium 136 (136-148) mmol/L Potassium 6.2 H (3.5-5.1) mmol/L Chloride 95 L (98-107) mmol/L Carbon Dioxide 27.9 (21.0-32.0) mmol/L BUN 73 H (7.0-18.0) mg/dL Creatinine 8.9 H (0.8-1.3) mg/dL Est Cr Clr Drug Dosing 8.72 mL/min Estimated GFR (MDRD) 6.1 ml/min Glucose 125 H (74-106) mg/dL Calcium 9.1 (8.5-10.1) mg/dL Total Bilirubin 0.8 (0.2-1.0) mg/dL AST 18 (15-37) IU/L ALT 17 (14-63) IU/L Alkaline Phosphatase 78 (46-116) U/L Troponin I 0.103 H* (0.000-0.056) ng/mL Total Protein 7.5 (6.4-8.2) g/dL Albumin 3.1 L (3.4-5.0) g/dL Globulin 4.4 H (2.6-4.0) g/dL Albumin/Globulin Ratio 0.7 L (0.9-1.6) Meds: Medications Generic Name Dose Route Start Last Admin Trade Name Eliecerq PRN Reason Stop Dose Admin Piperacillin Sod/Tazobactam 50 mls @ 100 mls/hr 12/20/18 04:15 Sod 2.25 gm/ Sodium Chloride IV 12/20/18 04:44 ONETIME ONE Discontinued Medications Generic Name Dose Route Start Last Admin Trade Name Freq PRN Reason Stop Dose Admin Albuterol/Ipratropium Confirm 12/20/18 02:57 12/20/18 03:17 Duoneb 3.0-0.5 Mg/3 Ml Administered 12/20/18 02:58 Not Given Dose 3 ml .ROUTE .STK-MED ONE Albuterol/Ipratropium 3 ml 12/20/18 03:05 12/20/18 03:16 Duoneb 3.0-0.5 Mg/3 Ml NEB 12/20/18 03:06 3 ml ONETIME ONE Administration Atropine Sulfate 0.5 mg 12/20/18 03:21 12/20/18 03:30 Atropine 0.1 Mg/Ml IVPUSH 12/20/18 03:22 0.5 mg ONETIME ONE Administration Atropine Sulfate 0.5 mg 12/20/18 03:38 12/20/18 03:39 Atropine 0.1 Mg/Ml IVPUSH 12/20/18 03:39 0.5 mg ONETIME ONE Administration Atropine Sulfate 0.5 mg 12/20/18 03:46 12/20/18 04:15 Atropine 0.1 Mg/Ml IVPUSH 12/20/18 03:47 0.5 mg ONETIME ONE Administration Sodium Chloride 1,000 mls @ 999 mls/hr 12/20/18 03:13 12/20/18 03:16 Normal Saline IV 12/20/18 04:13 999 mls/hr STAT ONE Administration Methylprednisolone Sodium Succinate Confirm 12/20/18 02:57 12/20/18 03:17 Solu-Medrol Administered 12/20/18 02:58 Not Given Dose 125 mg .ROUTE .STK-MED ONE Methylprednisolone Sodium Succinate 125 mg 12/20/18 03:05 12/20/18 03:05 Solu-Medrol IVPUSH 12/20/18 03:06 125 mg ONETIME ONE Administration Departure - Departure Time of Disposition: 04:33 Disposition: DC/Tfer to Acute Hospital 02 Condition: Poor Clinical Impression: Bradycardia, Pneumonia, End stage renal disease CHF (congestive heart failure) Qualifiers: Qualified Code(s): I50.21 - Acute systolic (congestive) heart failure - Discharge Information Referrals: PCP,None [Primary Care Provider] - Forms: ED Department Discharge - My Orders Last 24 Hours: My Active Orders 12/20/18 02:57 EKG Documentation Completion [RC] STAT UA RFX CHINTAN AND CULT IF INDIC [URIN] Stat 12/20/18 03:05 RT Aerosol Therapy [RC] ASDIRECTED B-TYPE NATRIURETIC PEPTIDE,BNP [CHEM] Stat 12/20/18 04:15 Piperacillin/Tazobactam [Zosyn] 2.25 gm Sodium Chloride 0.9% [Normal Saline] 50 ml IV ONETIME 12/20/18 04:18 CULTURE BLOOD [BC] Stat CULTURE BLOOD [BC] Stat Blood Culture x2 Reflex Set [OM.PC] Stat 12/20/18 04:31 Calcium Gluconate 1 gm IVPUSH ONETIME ONE - Assessment/Plan Last 24 Hours: My Active Orders 12/20/18 02:57 EKG Documentation Completion [RC] STAT UA RFX CHINTAN AND CULT IF INDIC [URIN] Stat 12/20/18 03:05 RT Aerosol Therapy [RC] ASDIRECTED B-TYPE NATRIURETIC PEPTIDE,BNP [CHEM] Stat 12/20/18 04:15 Piperacillin/Tazobactam [Zosyn] 2.25 gm Sodium Chloride 0.9% [Normal Saline] 50 ml IV ONETIME 12/20/18 04:18 CULTURE BLOOD [BC] Stat CULTURE BLOOD [BC] Stat Blood Culture x2 Reflex Set [OM.PC] Stat 12/20/18 04:31 Calcium Gluconate 1 gm IVPUSH ONETIME ONE
[2018-12-20] MEDS ORDERED: Calcium Gluconate 10% 1 GM/10 ML SDV IVPUSH ONE (04:31)
[2018-12-20 05:05] VITALS: BP 91/54; PULSE 55
== END 2018-12-20 05:15 ==
LOC: MW.ED 02:55
DX: I13.0 Hypertensive heart and chronic kidney disease with heart failure and stage 1 through stage 4 chronic kidney disease, or unspecified chronic kidney disease (principal); I50.21 Acute systolic (congestive) heart failure; N18.6 End stage renal disease; J18.9 Pneumonia, unspecified organism; J45.909 Unspecified asthma, uncomplicated; R79.89 Other specified abnormal findings of blood chemistry; I48.91 Unspecified atrial fibrillation; Z79.01 Long term (current) use of anticoagulants; Z79.899 Other long term (current) drug therapy; Z91.018 Allergy to other foods; Z91.013 Allergy to seafood
CPT/HCPCS: 36415; 71045; 80053; 83880; 84484; 85025; 85610; 87040; 93005; 96361; 96365; 96375; 96376; 99285; J0461; J0610; J2543; J7040; J7050; J7060; J2930; J7620-GY

== ENCOUNTER 2019-10-28 10:51 | Emergency (ER) | payer MEDICARE, BC, OTHER ==
[2019-10-28] MEDS ORDERED: Sodium Chloride 0.9% 2.5 ML Syringe FLUSH PRN (11:00)
[2019-10-28] MEDS ORDERED: Sodium Chloride 0.9% 10 ML Syringe FLUSH PRN (11:00)
--- NOTE | 2019-10-28 11:10 | EDM.PDOC ---
ED HPI GENERAL MEDICAL PROBLEM - General Chief Complaint: Respiratory Problem Stated Complaint: SOB Time Seen by Provider: 10/28/19 10:59 Source of Information: Reports: Patient History Limitations: Reports: No Limitations - History of Present Illness INITIAL COMMENTS - FREE TEXT/NARRATIVE: HISTORY AND PHYSICAL: History of present illness: Patient is a 64-year-old male who presents to the ED today with concern of shortness of breath worsening over the past 1 month. Patient states that 1 month ago he had a surgery and attempt to do a bypass due to coronary artery disease but was told that his vessel was too fragile. Patient states that he is scheduled to get a stent placed next week. Patient states over the course of the past 1 month he has began to feel feel more short of breath. Patient states he was in dialysis today and they told him to come to the ED to be evaluated because they felt the shortness of breath was not normal. Patient states that he has had a hard time with his ADLs at home due to the shortness of breath and has been taking Tylenol PM in order to sleep. Patient states that he receives dialysis Fridays and has done this for 7 years due to end stage renal disease. Patient states that 1 week after his surgery in [place], he had to have "fluid drained from his left lung "in [place] at [facility]. Patient states despite doing this, he continues to feel short of breath. Patient has a history of end-stage renal disease on dialysis, coronary artery disease Patient denies fever, chills, chest pain, or cough. Denies headache, neck stiff ness, change in vision, syncope, or near syncope. Denies nausea, vomiting, abdominal pain, diarrhea, constipation, or dysuria. Has not noted any blood in urine or stool. Patient has been eating and drinking appropriately. Review of systems: As per history of present illness and below otherwise all systems reviewed and negative. Past medical history: As per history of present illness and as reviewed below otherwise noncontributory. Surgical history: As per history of present illness and as reviewed below otherwise noncontributory. Social history: See social history for further information Family history: As per history of present illness and as reviewed below otherwise noncontributory. Physical exam: General: Patient is alert, oriented, and in no acute distress. Patient laying on exam table with tachypnea. HEENT: Atraumatic, normocephalic, pupils equal and reactive bilaterally, negative for conjunctival pallor or scleral icterus, mucous membranes moist, TMs normal bilaterally, throat clear, neck supple, nontender, trachea midline. No drooling or trismus noted. No meningeal signs. No hot potato voice noted. Lungs: Patient speaking 1-3 word sentences due to breathlessness, no wheezing or stridor, use of secondary accessory muscle and intercostal retractions use. Auscultation deferred due to current COV-ID 19 outbreak. Heart: Auscultation deferred due to current COVID outbreak. Abdomen: Soft, nondistended, nontender. Negative for masses or hepatosplenomegaly. Negative for costovertebral tenderness. Pelvis: Stable nontender. Genitourinary: Deferred. Rectal: Deferred. Skin: Intact, warm, dry. No lesions or rashes noted. Extremities: Atraumatic, negative for cords or calf pain. Neurovascular unremarkable. Neuro: Awake, alert, oriented. Cranial nerves II through XII unremarkable. Cerebellum unremarkable. Motor and sensory unremarkable throughout. Exam nonfocal. Notes: Dr. Bradley directly involved in patient care and co-managing patient. On initial exam, patient does appear to be short of breath but oxygenation of 95% on RA. EKG reviewed. A flutter with rate 106. Patient's potassium is low today, however, he just received dialysis just prior to coming to the ED so I do expect that this will correct itself without intervention. Patient appears much more comfortable after initial exam and speaking full sentences without difficulty and no longer using accessory muscles for breathing. Bedside US performed by Dr. Bradley. See his note for procedure detail and findings. Patient offered transfer to have drainage of the pleural effusion due to his INR being too elevated to have this performed by Dr. Bradley at this time with Coumadin use. Dr. Bradley also offered to have this drained in the following days by him after stopping Coumadin until INR <1.4. Patient declines transfer and requesting discharge to home with returning tomorrow after stopping Coumadin with INR check to have drained by Dr. Bradley. Voices understanding and is agreeable to plan of care. Denies any further questions or concerns at this time. Diagnostics: CBC, CMP, UA, EKG, chest x-ray, troponin, lactate, VBG, coronavirus, BNP, pt/inr, ptt Therapeutics: oxygen, saline lock, cardiac monitoring Prescription: None Impression: Left sided pleural effusion Chronic history at baseline Plan: 1. Stop Coumadin for today and tomorrow as discussed. Return to the ED tomorrow to have repeat INR with possibility to have the fluid in your lung (pleural effusion) drained as discussed between 7am-7pm. Definitive disposition and diagnosis as appropriate pending reevaluation and review of above. - Related Data Allergies Allergy/AdvReac Type Severity Reaction Status Date / Time Fish Containing Products Allergy Swelling Verified 12/20/18 03:01 walnut Allergy Other Verified 12/20/18 03:01 Home Meds: Home Meds Pantoprazole Sodium [Protonix] 40 mg PO ACBREAKFAST 11/05/18 [History] Albuterol [Ventolin HFA] 2 puff INH Q6H PRN 12/06/18 [History] Diltiazem HCl [Diltiazem 24Hr ER] 360 mg PO DAILY 12/06/18 [History] Warfarin Sodium [Coumadin] 1 mg PO DAILY 12/06/18 [History] Acetaminophen/HYDROcodone [[place] 325-5 MG] 1 tab PO Q6H PRN 10/28/19 [History] Albuterol [Proventil Neb Soln] 2.5 mg INH Q6H PRN 10/28/19 [History] Amiodarone [Cordarone] 200 mg PO DAILY 10/28/19 [History] B Complex W-C No.20/Folic Acid [Virt-Caps Softgel] 1 mg PO PCBREAKFAST 10/28/19 [History] Metoprolol Tartrate [Lopressor] 25 mg PO BID 10/28/19 [History] Midodrine 2.5 mg PO ASDIRECTED 10/28/19 [History] Nitroglycerin [Nitrostat] 0.4 mg SL ASDIRECTED PRN 10/28/19 [History] Rosuvastatin [Crestor] 20 mg PO DAILY 10/28/19 [History] Sevelamer Carbonate [Renvela] 800 mg PO TIDMEALS 10/28/19 [History] Past Medical History Cardiovascular History: Reports: Afib, Hypertension Respiratory History: Reports: Asthma Genitourinary History: Reports: Renal Disease Hematologic History: Reports: Blood Transfusion(s) - Infectious Disease History Infectious Disease History: Reports: Chicken Pox, Measles - Past Surgical History HEENT Surgical History: Reports: Tonsillectomy GI Surgical History: Reports: Other (See Below) Other GI Surgeries/Procedures: abdominal sx Social & Family History - Family History Family Medical History: Noncontributory - Caffeine Use Caffeine Use: Reports: Coffee ED ROS GENERAL - Review of Systems Review Of Systems: Comprehensive ROS is negative, except as noted in HPI. ED EXAM, GENERAL - Physical Exam Exam: See Below (see dictation) Course - Vital Signs Last Recorded V/S: Last Vital Signs Temp 97.9 F 10/28/19 11:02 Pulse 131 H 10/28/19 11:02 Resp 20 10/28/19 11:02 BP 110/73 10/28/19 11:02 Pulse Ox 95 10/28/19 11:02 - Orders/Labs/Meds Orders: Active Orders 24 hr Category Date Time Status Cardiac Monitoring [RC] . DIRECTED Care 10/28/19 11:00 Active EKG Documentation Completion [RC] STAT Care 10/28/19 11:00 Active UA RFX CHINTAN AND CULT IF INDIC [URIN] Stat Lab 10/28/19 11:00 Ordered Sodium Chloride 0.9% [Saline Flush] Med 10/28/19 11:00 Active 10 ml FLUSH ASDIRECTED PRN Sodium Chloride 0.9% [Saline Flush] Med 10/28/19 11:00 Active 2.5 ml FLUSH ASDIRECTED PRN Saline Lock Insert [OM.PC] Stat Oth 10/28/19 11:00 Ordered Medication Orders Sodium Chloride (Saline Flush) 2.5 ml FLUSH ASDIRECTED PRN PRN Reason: Keep Vein Open Last Admin: 10/28/19 11:21 Dose: 2.5 ml Documented by: MARYURI Sodium Chloride (Saline Flush) 10 ml FLUSH ASDIRECTED PRN PRN Reason: Keep Vein Open Last Admin: 10/28/19 11:21 Dose: 10 ml Documented by: MARYURI Labs: Laboratory Tests 10/28/19 10/28/19 10/28/19 Range/Units 11:07 11:07 11:07 WBC 8.81 (4.0-11.0) K/uL RBC 3.23 L (4.50-5.90) M/uL Hgb 10.0 L (13.0-17.0) g/dL Hct 32.4 L (38.0-50.0) % MCV 100.3 H (80.0-98.0) fL MCH 31.0 (27.0-32.0) pg MCHC 30.9 L (31.0-37.0) g/dL RDW Std Deviation 64.0 H (28.0-62.0) fl RDW Coeff of Nii 18 H (11.0-15.0) % Plt Count 253 (150-400) K/uL MPV 9.40 (7.40-12.00) fL Neut % (Auto) 76.8 (48.0-80.0) % Lymph % (Auto) 8.4 L (16.0-40.0) % [place] % (Auto) 12.4 (0.0-15.0) % Eos % (Auto) 2.2 (0.0-7.0) % Baso % (Auto) 0.2 (0.0-1.5) % Neut # (Auto) 6.8 H (1.4-5.7) K/uL Lymph # (Auto) 0.7 (0.6-2.4) K/uL [place] # (Auto) 1.1 H (0.0-0.8) K/uL Eos # (Auto) 0.2 (0.0-0.7) K/uL Baso # (Auto) 0.0 (0.0-0.1) K/uL Nucleated RBC % 0.0 /100WBC Nucleated RBCs # 0 K/uL INR APTT (18.6-31.3) SEC VBG pH 7.47 H (7.31-7.41) VBG pCO2 45 (35-45) mmHG VBG pO2 27 L (30-40) mmHG VBG HCO3 33 H (22-30) mEq/L VBG Total CO2 31 L (41-51) mmol/L VBG Base Excess 8.2 H (-3.0-3.0) Lactate (0.20-2.00) mmol/L Sodium 136 (136-148) mmol/L Potassium 2.8 L (3.5-5.1) mmol/L Chloride 96 L (98-107) mmol/L Carbon Dioxide 31.5 (21.0-32.0) mmol/L BUN 8 (7.0-18.0) mg/dL Creatinine 2.6 H (0.8-1.3) mg/dL Est Cr Clr Drug Dosing 29.58 mL/min Estimated GFR (MDRD) 25.1 ml/min Glucose 62 L (74-106) mg/dL Calcium 9.0 (8.5-10.1) mg/dL Total Bilirubin 0.5 (0.2-1.0) mg/dL AST 39 H (15-37) IU/L ALT 21 (14-63) IU/L Alkaline Phosphatase 158 H (46-116) U/L Troponin I < 0.050 (0.000-0.056) ng/mL B-Natriuretic Peptide (<100) PG/ML Total Protein 6.8 (6.4-8.2) g/dL Albumin 2.2 L (3.4-5.0) g/dL Globulin 4.6 H (2.6-4.0) g/dL Albumin/Globulin Ratio 0.5 L (0.9-1.6) COVID-19 (VASILIY) (NEGATIVE) 10/28/19 10/28/19 10/28/19 Range/Units 11:07 11:07 11:07 WBC (4.0-11.0) K/uL RBC (4.50-5.90) M/uL Hgb (13.0-17.0) g/dL Hct (38.0-50.0) % MCV (80.0-98.0) fL MCH (27.0-32.0) pg MCHC (31.0-37.0) g/dL RDW Std Deviation (28.0-62.0) fl RDW Coeff of Nii (11.0-15.0) % Plt Count (150-400) K/uL MPV (7.40-12.00) fL Neut % (Auto) (48.0-80.0) % Lymph % (Auto) (16.0-40.0) % [place] % (Auto) (0.0-15.0) % Eos % (Auto) (0.0-7.0) % Baso % (Auto) (0.0-1.5) % Neut # (Auto) (1.4-5.7) K/uL Lymph # (Auto) (0.6-2.4) K/uL [place] # (Auto) (0.0-0.8) K/uL Eos # (Auto) (0.0-0.7) K/uL Baso # (Auto) (0.0-0.1) K/uL Nucleated RBC % /100WBC Nucleated RBCs # K/uL INR 1.70 APTT 41.6 H (18.6-31.3) SEC VBG pH (7.31-7.41) VBG pCO2 (35-45) mmHG VBG pO2 (30-40) mmHG VBG HCO3 (22-30) mEq/L VBG Total CO2 (41-51) mmol/L VBG Base Excess (-3.0-3.0) Lactate 1.3 (0.20-2.00) mmol/L Sodium (136-148) mmol/L Potassium (3.5-5.1) mmol/L Chloride (98-107) mmol/L Carbon Dioxide (21.0-32.0) mmol/L BUN (7.0-18.0) mg/dL Creatinine (0.8-1.3) mg/dL Est Cr Clr Drug Dosing mL/min Estimated GFR (MDRD) ml/min Glucose (74-106) mg/dL Calcium (8.5-10.1) mg/dL Total Bilirubin (0.2-1.0) mg/dL AST (15-37) IU/L ALT (14-63) IU/L Alkaline Phosphatase (46-116) U/L Troponin I (0.000-0.056) ng/mL B-Natriuretic Peptide 2518 H (<100) PG/ML Total Protein (6.4-8.2) g/dL Albumin (3.4-5.0) g/dL Globulin (2.6-4.0) g/dL Albumin/Globulin Ratio (0.9-1.6) COVID-19 (VASILIY) (NEGATIVE) 10/28/19 Range/Units 12:10 WBC (4.0-11.0) K/uL RBC (4.50-5.90) M/uL Hgb (13.0-17.0) g/dL Hct (38.0-50.0) % MCV (80.0-98.0) fL MCH (27.0-32.0) pg MCHC (31.0-37.0) g/dL RDW Std Deviation (28.0-62.0) fl RDW Coeff of Nii (11.0-15.0) % Plt Count (150-400) K/uL MPV (7.40-12.00) fL Neut % (Auto) (48.0-80.0) % Lymph % (Auto) (16.0-40.0) % [place] % (Auto) (0.0-15.0) % Eos % (Auto) (0.0-7.0) % Baso % (Auto) (0.0-1.5) % Neut # (Auto) (1.4-5.7) K/uL Lymph # (Auto) (0.6-2.4) K/uL [place] # (Auto) (0.0-0.8) K/uL Eos # (Auto) (0.0-0.7) K/uL Baso # (Auto) (0.0-0.1) K/uL Nucleated RBC % /100WBC Nucleated RBCs # K/uL INR APTT (18.6-31.3) SEC VBG pH (7.31-7.41) VBG pCO2 (35-45) mmHG VBG pO2 (30-40) mmHG VBG HCO3 (22-30) mEq/L VBG Total CO2 (41-51) mmol/L VBG Base Excess (-3.0-3.0) Lactate (0.20-2.00) mmol/L Sodium (136-148) mmol/L Potassium (3.5-5.1) mmol/L Chloride (98-107) mmol/L Carbon Dioxide (21.0-32.0) mmol/L BUN (7.0-18.0) mg/dL Creatinine (0.8-1.3) mg/dL Est Cr Clr Drug Dosing mL/min Estimated GFR (MDRD) ml/min Glucose (74-106) mg/dL Calcium (8.5-10.1) mg/dL Total Bilirubin (0.2-1.0) mg/dL AST (15-37) IU/L ALT (14-63) IU/L Alkaline Phosphatase (46-116) U/L Troponin I (0.000-0.056) ng/mL B-Natriuretic Peptide (<100) PG/ML Total Protein (6.4-8.2) g/dL Albumin (3.4-5.0) g/dL Globulin (2.6-4.0) g/dL Albumin/Globulin Ratio (0.9-1.6) COVID-19 (VASILIY) NEGATIVE (NEGATIVE) Meds: Medications Generic Name Dose Route Start Last Admin Trade Name Freq PRN Reason Stop Dose Admin Sodium Chloride 2.5 ml 10/28/19 11:00 10/28/19 11:21 Saline Flush FLUSH 2.5 ml ASDIRECTED PRN Administration Keep Vein Open Sodium Chloride 10 ml 10/28/19 11:00 10/28/19 11:21 Saline Flush FLUSH 10 ml ASDIRECTED PRN Administration Keep Vein Open Departure - Departure Time of Disposition: 12:55 Disposition: Home, Self-Care 01 Clinical Impression: Pleural effusion - Discharge Information Instructions: Pleural Effusion Referrals: PCP,None [Primary Care Provider] - Forms: ED Department Discharge Additional Instructions: The following information is given to patients seen in the emergency department who are being discharged to home. This information is to outline your options for follow-up care. We provide all patients seen in our emergency department with a follow-up referral. The need for follow-up, as well as the timing and circumstances, are variable depending upon the specifics of your emergency department visit. If you don't have a primary care physician on staff, we will provide you with a referral. We always advise you to contact your personal physician following an emergency department visit to inform them of the circumstance of the visit and for follow-up with them and/or the need for any referrals to a consulting specialist. The emergency department will also refer you to a specialist when appropriate. This referral assures that you have the opportunity for follow-up care with a specialist. All of these measure are taken in an effort to provide you with optimal care, which includes your follow-up. Under all circumstances we always encourage you to contact your private physician who remains a resource for coordinating your care. When calling for follow-up care, please make the office aware that this follow-up is from your recent emergency room visit. If for any reason you are refused follow-up, please contact the [facility] Emergency Department at and asked to speak to the emergency department charge nurse. [facility] [address] [place] [address] [facility] [address] [place] [address] 1. Stop Coumadin for today and tomorrow as discussed. Return to the ED tomorrow to have repeat INR with possibility to have the fluid in your lung (pleural effusion) drained as discussed between 7am-7pm. Sepsis Event Note (ED) - Focused Exam Vital Signs: Vital Signs Temp Pulse Resp BP Pulse Ox 10/28/19 11:02 97.9 F 131 H 20 110/73 95 - My Orders Last 24 Hours: My Active Orders 10/28/19 11:00 Cardiac Monitoring [RC] . DIRECTED EKG Documentation Completion [RC] STAT UA RFX CHINTAN AND CULT IF INDIC [URIN] Stat Sodium Chloride 0.9% [Saline Flush] 10 ml FLUSH ASDIRECTED PRN Sodium Chloride 0.9% [Saline Flush] 2.5 ml FLUSH ASDIRECTED PRN Saline Lock Insert [OM.PC] Stat - Assessment/Plan Last 24 Hours: My Active Orders 10/28/19 11:00 Cardiac Monitoring [RC] . DIRECTED EKG Documentation Completion [RC] STAT UA RFX CHINTAN AND CULT IF INDIC [URIN] Stat Sodium Chloride 0.9% [Saline Flush] 10 ml FLUSH ASDIRECTED PRN Sodium Chloride 0.9% [Saline Flush] 2.5 ml FLUSH ASDIRECTED PRN Saline Lock Insert [OM.PC] Stat
--- NOTE | 2019-10-28 11:28 | CR ---
Chest: Portable view of the chest was obtained. Comparison: Prior chest x-ray of 11/05/18. Diffuse increased density with the left lung base is noted. Findings most likely due to pleural effusion and associated parenchymal density. Thick linear density with left midlung is seen which is stable from previous exam. Heart is enlarged. Prior sternotomy is noted. Right lung is clear. Old healed left clavicle fracture deformity is noted. Impression: 1. Diffuse increased density of the left lung base as described above. 2. Mild cardiomegaly. Diagnostic code #3 This report was dictated in MDT
[2019-10-28 11:40] LABS: BLOOD UREA NITROGEN,BUN 8 mg/dL (7.0-18.0); CARBON DIOXIDE,CO2 31.5 mmol/L (21.0-32.0); CHLORIDE,CL 96 mmol/L (98-107); GLUCOSE RANDOM 62 mg/dL (74-106); POTASSIUM,K 2.8 mmol/L (3.5-5.1); SODIUM,NA 136 mmol/L (136-148)
--- NOTE | 2019-10-28 11:54 | PCM.SN.2 ---
- Free Text/Narrative Note: Attending physician note I have seen and evaluated the patient with the advanced practice provider. Chief Complaint: Shortness of breath Brief HPI: This 64-year-old male with a past medical history of end-stage renal disease on hemodialysis (M, W, F), hypertension and coronary artery disease presents to the emergency department complaining of shortness of breath. His dyspnea became acutely worse during dialysis. He was noted to have tachycardia and was sent to the emergency department for evaluation. He reports a past history of having a left-sided pleural effusion that required drainage. He denies any fever, hemoptysis, or other associated signs or symptoms. ROS: Reviewed and agree Focused Exam: VITAL SIGNS: Reviewed. GENERAL: Awake, conversant, GCS 15, dyspneic, minimal accessory muscle use HEAD: No visible signs of trauma EYES: Pupils equal, EOM grossly intact EARS: Hearing grossly intact. MOUTH: No visible lesions NECK: Appears supple CHEST: Tachypnea, diminished on the left. CARDIAC: Irregularly irregular with tachycardia ABDOMEN: Soft, nontender, benign exam NEUROLOGIC EXAM: Awake and Alert, non-focal SKIN: No visible rashes EXTREMITIES: No deformities noted VASCULAR: Appears well perfused 12 lead EKG interpretation Obtained: October 28, 2019 at 10:58 AM Rhythm: Atrial flutter with rapid and ventricular rate Rate: 106 [place]: Left [place] deviation Intervals: Atrial flutter is present ST/T Segments: Nonspecific T wave abnormality Interpretation: Atrial flutter with rapid ventricular response. Left axis deviation. Nonspecific T wave abnormality. Procedure Note: Chest/Pulmonary Ultrasound Self-performed and read; images archived Location: Chest - Bilateral anterior Indication: Evaluation for dyspnea Probe: phased array - Normal sliding sign - Normal comet tails - Normal significant left pleural effusion Impression: 1. No Pneumothorax 2. Large left-sided pleural effusion Signed by Darien Bradley, Procedure Note: Point of Care Bedside Echocardiogram (limited echo) Self-performed and read Location: Chest Indication: Dyspnea Probe: phased array - Cardiac contour identified -Limited evaluation but wall motion abnormality noted in multiple planes -Cardiomegaly is present with hypertrophy -No pericardial fluid seen. No Tamponade -EF estimated at 35% Impression: 1. No tamponade or effusion 2. EF 35% estimate 3. Atrial flutter noted 4. Dilated atria bilaterally noted 5. Cardiomegaly with wall motion abnormality. Limited evaluation no specifics. Signed by: Darien Bradley MD Shortness of breath: Differential diagnosis includes asthma, COPD, pneumonia, congestive heart failure, anemia, thyroid disease, acidosis, pulmonary embolism, myocardial infarction, sepsis. This appears to be secondary the patient's reaccumulation of significant left- sided pleural effusion. The doubt that this is significantly related to his rate. I figured his rate is secondary to his dyspnea. Assessment & Plan: 1. Large left-sided pleural effusion 2. Atrial flutter with rapid ventricular response If the INR is in a safe range we can perform thoracentesis otherwise the patient will need to be transferred, await his INR to fall to normal, and thoracentesis can be performed at that point.
[2019-10-28 13:59] VITALS: BP 124/78; PULSE 134
== END 2019-10-28 13:04 | disposition home or self-care (01) ==
LOC: MW.ED 10:51
DX: J90 Pleural effusion, not elsewhere classified (principal); I10 Essential (primary) hypertension; I48.91 Unspecified atrial fibrillation; J45.909 Unspecified asthma, uncomplicated; Z91.018 Allergy to other foods; Z91.013 Allergy to seafood; Z20.828 Contact with and (suspected) exposure to other viral communicable diseases; Z79.01 Long term (current) use of anticoagulants; Z79.899 Other long term (current) drug therapy
CPT/HCPCS: 36415; 71045; 80053; 82803; 83605; 83880; 84484; 85025; 85610; 85730; 93005; 99285; U0002; 99284

== ENCOUNTER 2019-10-29 09:34 | Emergency (ER) | payer MEDICARE, BC ==
[2019-10-29] MEDS ORDERED: Lidocaine 1% with EPINEPHrine 1:100,000 20 ML MDV INJECT ONE (09:39)
--- NOTE | 2019-10-29 10:12 | EDM.PDOC ---
ED [facility] GENERAL MEDICAL PROBLEM - General Chief Complaint: Respiratory Problem Stated Complaint: FLUID AROUND LUNGS Time Seen by Provider: 10/29/19 09:58 - History of Present Illness INITIAL COMMENTS - FREE TEXT/NARRATIVE: HISTORY AND PHYSICAL: History of present illness: This 64-year-old male presents to the emergency department again with left-sided pleural effusion and shortness of breath. Mild worsening of symptoms but was able to sleep some last night. Plan is for the patient to receive thoracentesis as discussed yesterday in my note. If the INR is less than 1.4 we should be able to do this today. Review of systems: A 10-point review of systems, other than pertinent positives and negatives as stated per HPI, is otherwise negative. Past medical history: As per history of present illness and as reviewed below otherwise noncontributory. Surgical history: As per history of present illness and as reviewed below otherwise noncontributory. Social history: No reported history of drug or alcohol abuse. Family history: As per history of present illness and as reviewed below otherwise noncontributory. Physical exam: VITAL SIGNS: Reviewed. GENERAL: Mild respiratory distress. Oxygen saturation 92% which is hypoxemic. Will place the patient on oxygen HEAD: No signs of head trauma. EYES: Pupils are equal. Extraocular motions intact. EARS: Hearing grossly intact. MOUTH: Oropharynx is normal. NECK: No adenopathy, no JVD. CHEST: Diminished breath sounds on left. Bilateral mild crackles. Mild accessory muscle use and tachypnea. CARDIAC: Irregularly irregular. I do not appreciate a murmur. Mild tachycardia. VASCULAR: Peripheral pulses normal and equal in all extremities. ABDOMEN: Soft, without detectable tenderness. No sign of distention. No rebound or guarding, and no masses palpated. MUSCULOSKELETAL: Good range of motion of all major joints. Extremities without clubbing, cyanosis or edema. NEUROLOGIC EXAM: Alert and oriented x 3. No focal sensory or motor deficits. Speech normal. Follows commands. PSYCHIATRIC: Mood normal. SKIN: No rash or lesions. Initial Differential Diagnosis & Plan: Shortness of breath: Differential diagnosis includes asthma, COPD, pneumonia, congestive heart failure, anemia, thyroid disease, acidosis, pulmonary embolism, myocardial infarction, sepsis. Symptomatic left-sided pleural effusion. Patient on Coumadin and Coumadin was stopped with last dose on . If INR is in safe range will perform thoracentesis today. Definitive disposition and diagnosis as appropriate pending reevaluation and review of above. - Related Data Allergies Allergy/AdvReac Type Severity Reaction Status Date / Time Fish Containing Products Allergy Swelling Verified 10/29/19 10:00 walnut Allergy Other Verified 10/29/19 10:00 Home Meds: Home Meds Pantoprazole Sodium [Protonix] 40 mg PO ACBREAKFAST 11/05/18 [History] Albuterol [Ventolin HFA] 2 puff INH Q6H PRN 12/06/18 [History] Warfarin Sodium [Coumadin] 1 mg PO DAILY 12/06/18 [History] Albuterol [Proventil Neb Soln] 2.5 mg INH Q6H PRN 10/28/19 [History] B Complex W-C No.20/Folic Acid [Virt-Caps Softgel] 1 mg PO PCBREAKFAST 10/28/19 [History] Metoprolol Tartrate [Lopressor] 25 mg PO BID 10/28/19 [History] Midodrine 2.5 mg PO ASDIRECTED 10/28/19 [History] Rosuvastatin [Crestor] 20 mg PO BEDTIME 10/28/19 [History] Sevelamer Carbonate [Renvela] 800 mg PO TIDMEALS 10/28/19 [History] Past Medical History HEENT History: Reports: None Cardiovascular History: Reports: Afib, Hypertension Respiratory History: Reports: Asthma Gastrointestinal History: Reports: None Genitourinary History: Reports: Renal Disease Other Genitourinary History: on hemodialysis - tstaes he's on transplant list Hematologic History: Reports: Blood Transfusion(s) - Infectious Disease History Infectious Disease History: Reports: Chicken Pox, Measles - Past Surgical History HEENT Surgical History: Reports: Tonsillectomy GI Surgical History: Reports: Other (See Below) Other GI Surgeries/Procedures: abdominal sx Social & Family History - Family History Family Medical History: Noncontributory - Caffeine Use Caffeine Use: Reports: Coffee ED ROS GENERAL - Review of Systems Review Of Systems: See Below (noted) ED EXAM, GENERAL - Physical Exam Exam: See Below (noted) ED RESPIRATORY PROCEDURES - Additional/Other Procedure(s) Other (Free Text) Procedure(s): PROCEDURE NOTE: Thoracentesis with ultrasound guidance After informed consent was obtained the pleural fluid was localized on the left with the ultrasound and images were captured, saved and archived for reference. The area was marked, cleansed and prepped in a normal fashion. Using aseptic technique the tract was anesthetized adequately with lidocaine. A needle was introduced over the rib to the area of interest and fluid was withdrawn. A catheter was then advanced and 60 mL was drained in the syringe and sent for laboratory evaluation. An additional 1000 mL was drained for patient comfort and therapeutic benefit. The patient tolerated the procedure well. Postprocedural x-ray shows no evidence of pneumothorax. Complications: none Procedure Note: Chest/Pulmonary Ultrasound Self-performed and read; images archived Location: Chest Indication: Evaluation for localization of the effusion Probe: phased array - Normal sliding sign - Normal comet tails -Fluid collection noted on the left Impression: 1. Localized fluid collection noted and marked on the skin for procedural guidance and safety Signed by Darien Bradley MD EKG INTERPRETATION EKG Interpretation Comments: Please see note for EKG below Course - Vital Signs Text/Narrative:: At 10:30 AM I noted the INR to be 1.8. This is increasing. Likely represents patient not able to clear the Coumadin given his end-stage renal disease and hemodialysis. Overall his respiratory status is worsening. His respiratory rate is increasing and he is tachypneic at 32, has an increasing oxygen requirement, and at 2 L/min was 90%. Given these factors I discussed with the patient. He would like reversal of his INR and drainage of his pleural effusion. We will accomplish this and reevaluate. He is in respiratory distress and I feel like this is an appropriate procedure to be done given the risk factors. Last Recorded V/S: Last Vital Signs Temp 99.1 F 10/29/19 11:52 Pulse 134 H 10/29/19 14:36 Resp 21 H 10/29/19 14:36 BP 118/83 10/29/19 14:30 Pulse Ox 94 L 10/29/19 14:36 - Orders/Labs/Meds Orders: Active Orders 24 hr Category Date Time Status Chest wo Cont [CT] Stat Exams 10/29/19 11:50 Taken CULTURE BLOOD [BC] Stat Lab 10/29/19 12:02 Received CULTURE BLOOD [BC] Stat Lab 10/29/19 12:10 Received CULTURE BODY FLUID + SMEAR [RM] Stat Lab 10/29/19 12:33 Results UA W/MICROSCOPIC [URIN] Stat Lab 10/29/19 11:47 Ordered Sodium Chloride 0.9% [Saline Flush] Med 10/29/19 11:46 Active 10 ml FLUSH ASDIRECTED PRN Sodium Chloride 0.9% [Saline Flush] Med 10/29/19 11:46 Active 2.5 ml FLUSH ASDIRECTED PRN Blood Culture x2 Reflex Set [OM.PC] Stat Ot 10/29/19 11:47 Ordered Saline Lock Insert [OM.PC] Stat Ot 10/29/19 11:47 Ordered Severe Sepsis Onset Time [OM.PC] Stat Ot 10/29/19 11:47 Ordered Medication Orders Sodium Chloride (Saline Flush) 10 ml FLUSH ASDIRECTED PRN PRN Reason: Keep Vein Open Last Admin: 10/29/19 13:05 Dose: 10 ml Documented by: MARYURI Sodium Chloride (Saline Flush) 2.5 ml FLUSH ASDIRECTED PRN PRN Reason: Keep Vein Open Last Admin: 10/29/19 13:05 Dose: 2.5 ml Documented by: MARYURI Labs: Laboratory Tests 10/29/19 10/29/19 10/29/19 Range/Units 10:10 10:10 10:10 WBC 10.02 (4.0-11.0) K/uL RBC 3.19 L (4.50-5.90) M/uL Hgb 9.9 L (13.0-17.0) g/dL Hct 32.5 L (38.0-50.0) % MCV 101.9 H (80.0-98.0) fL MCH 31.0 (27.0-32.0) pg MCHC 30.5 L (31.0-37.0) g/dL RDW Std Deviation 64.6 H (28.0-62.0) fl RDW Coeff of Nii 18 H (11.0-15.0) % Plt Count 289 (150-400) K/uL MPV 9.70 (7.40-12.00) fL Neut % (Auto) 76.9 (48.0-80.0) % Lymph % (Auto) 7.5 L (16.0-40.0) % [place] % (Auto) 12.9 (0.0-15.0) % Eos % (Auto) 2.3 (0.0-7.0) % Baso % (Auto) 0.4 (0.0-1.5) % Neut # (Auto) 7.7 H (1.4-5.7) K/uL Lymph # (Auto) 0.8 (0.6-2.4) K/uL [place] # (Auto) 1.3 H (0.0-0.8) K/uL Eos # (Auto) 0.2 (0.0-0.7) K/uL Baso # (Auto) 0.0 (0.0-0.1) K/uL Nucleated RBC % 0.0 /100WBC Nucleated RBCs # 0 K/uL INR 1.82 Lactate (0.20-2.00) mmol/L Sodium 139 (136-148) mmol/L Potassium 4.4 (3.5-5.1) mmol/L Chloride 99 (98-107) mmol/L Carbon Dioxide 28.5 (21.0-32.0) mmol/L BUN 25 H (7.0-18.0) mg/dL Creatinine 5.2 H (0.8-1.3) mg/dL Est Cr Clr Drug Dosing 14.25 mL/min Estimated GFR (MDRD) 11.3 ml/min Glucose 82 (74-106) mg/dL Calcium 9.3 (8.5-10.1) mg/dL Total Bilirubin 0.5 (0.2-1.0) mg/dL AST 31 (15-37) IU/L ALT 18 (14-63) IU/L Alkaline Phosphatase 153 H (46-116) U/L Total Protein 6.8 (6.4-8.2) g/dL Albumin 2.2 L (3.4-5.0) g/dL Globulin 4.6 H (2.6-4.0) g/dL Albumin/Globulin Ratio 0.5 L (0.9-1.6) Fluid Type Fluid Color Fluid Appearance Fluid pH Fluid WBC /uL Fluid RBC /uL Fluid Mononuclear Cell % Fl Polymorphonucl Cell % Fluid LDH U/L 10/29/19 10/29/19 Range/Units 12:02 12:33 WBC (4.0-11.0) K/uL RBC (4.50-5.90) M/uL Hgb (13.0-17.0) g/dL Hct (38.0-50.0) % MCV (80.0-98.0) fL MCH (27.0-32.0) pg MCHC (31.0-37.0) g/dL RDW Std Deviation (28.0-62.0) fl RDW Coeff of Nii (11.0-15.0) % Plt Count (150-400) K/uL MPV (7.40-12.00) fL Neut % (Auto) (48.0-80.0) % Lymph % (Auto) (16.0-40.0) % [place] % (Auto) (0.0-15.0) % Eos % (Auto) (0.0-7.0) % Baso % (Auto) (0.0-1.5) % Neut # (Auto) (1.4-5.7) K/uL Lymph # (Auto) (0.6-2.4) K/uL [place] # (Auto) (0.0-0.8) K/uL Eos # (Auto) (0.0-0.7) K/uL Baso # (Auto) (0.0-0.1) K/uL Nucleated RBC % /100WBC Nucleated RBCs # K/uL INR Lactate 1.8 (0.20-2.00) mmol/L Sodium (136-148) mmol/L Potassium (3.5-5.1) mmol/L Chloride (98-107) mmol/L Carbon Dioxide (21.0-32.0) mmol/L BUN (7.0-18.0) mg/dL Creatinine (0.8-1.3) mg/dL Est Cr Clr Drug Dosing mL/min Estimated GFR (MDRD) ml/min Glucose (74-106) mg/dL Calcium (8.5-10.1) mg/dL Total Bilirubin (0.2-1.0) mg/dL AST (15-37) IU/L ALT (14-63) IU/L Alkaline Phosphatase (46-116) U/L Total Protein (6.4-8.2) g/dL Albumin (3.4-5.0) g/dL Globulin (2.6-4.0) g/dL Albumin/Globulin Ratio (0.9-1.6) Fluid Type PL Fluid Color RED Fluid Appearance CLOUDY Fluid pH 8.0 Fluid WBC 1 /uL Fluid RBC 0 /uL Fluid Mononuclear Cell 81 % Fl Polymorphonucl Cell 19 % Fluid LDH 255 U/L Meds: Medications Generic Name Dose Route Start Last Admin Trade Name Kenzie PRN Reason Stop Dose Admin Sodium Chloride 10 ml 10/29/19 11:46 10/29/19 13:05 Saline Flush FLUSH 10 ml ASDIRECTED PRN Administration Keep Vein Open Sodium Chloride 2.5 ml 10/29/19 11:46 10/29/19 13:05 Saline Flush FLUSH 2.5 ml ASDIRECTED PRN Administration Keep Vein Open Discontinued Medications Generic Name Dose Route Start Last Admin Trade Name Freq PRN Reason Stop Dose Admin Factor IX (Pha) 1,800 unit 10/29/19 11:36 10/29/19 11:36 Kcentra IVPUSH 10/29/19 11:37 1,800 unit ONETIME ONE Administration Meropenem 1 gm/ Sodium 100 mls @ 200 mls/hr 10/29/19 11:46 10/29/19 13:05 Chloride IV 10/29/19 12:15 Not Given STAT ONE Meropenem/Sodium Chloride 1 gm 50 mls @ 100 mls/hr 10/29/19 11:55 10/29/19 12:55 / Premix IV 10/29/19 12:15 100 mls/hr STAT ONE Administration Lidocaine/Epinephrine 20 ml 10/29/19 09:39 10/29/19 10:06 Xylocaine 1% With Epinephrine 1:100,000 INJECT 10/29/19 09:40 20 ml ONETIME ONE Administration - Re-Assessments/Exams Free Text/Narrative Re-Assessment/Exam: 10/29/19 11:45 Patient continues to have increased tachypnea and now has a tactile fever. Oral temperature was actually hypothermic less than 95 F. I will obtain a core tem perature to evaluate. I am going to expand his laboratory work-up today for comparison to yesterday. Patient now endorses that he self catheterizes occasionally because he sometimes makes urine and noted that he thought he may have a urinary tract infection but was just going to follow-up with his doctor. We will obtain a catheterized urine and urine culture to evaluate for underlying infection. I suspect I will need to give empiric antibiotics, expand his work-up, drain his pleural effusion to ensure respiratory compromise does address and likely will need to admit this patient to the referral facility. Free Text/Narrative Re-Assessment/Exam: 10/29/19 15:21 After period of observation the emergency department patient had some intermittent atrial fibrillation/a flutter with rapid ventricular response. Rate is now controlled at a rate of 98. I offered the patient admission to the patient because I am Concerned about his pleural effusion reaccumulation, r eversal of his warfarin, and overall respiratory status. He kindly think me for the offered but does not want to be admitted. He wants to go home and restart his medications, have dialysis on Thursday and see how he feels. He understands the risks, complications and possible untoward side effects of this. He is feeling much better now that he has had just over 1 L drained from his pleural effusion. No evidence of pneumothorax. 12 lead EKG interpretation Obtained: October 29, 2019 at 1444 Rhythm: Atrial flutter with rapid ventricular response Rate: 116 [place]: Left axis deviation Intervals: Atrial rate 294 ST/T Segments: Nonspecific ST-T changes Interpretation: A flutter with rapid ventricular response, left axis deviation and nonspecific ST-T changes. Diagnostic impression: 1. Left-sided pleural effusion drained in the emergency department without evidence of infection 2. Therapeutic oral anticoagulation with warfarin; reversed with Kcentra to allow for safe draining of the pleural effusion 3. Chronic atrial fibrillation/atrial flutter with intermittent rapid ventricular response 4. End-stage renal disease on hemodialysis 5. Refusal of admission/AMA I have invited the patient to come back anytime if he changes his mind. He is quite pleasant and he understands he can come back and feels comfortable doing so. Departure - Departure Time of Disposition: 15:32 (Leaving AMA, offered transfer and admission) Disposition: Home, Self-Care 01 Clinical Impression: Pleural effusion - Discharge Information *PRESCRIPTION DRUG MONITORING PROGRAM REVIEWED*: Not Applicable *COPY OF PRESCRIPTION DRUG MONITORING REPORT IN PATIENT DILEEP: Not Applicable Instructions: Pleural Effusion Referrals: Braden Alberts MD [Primary Care Provider] - Forms: ED Department Discharge Additional Instructions: The following information is given to patients seen in the emergency department who are being discharged to home. This information is to outline your options for follow-up care. We provide all patients seen in our emergency department with a follow-up referral. The need for follow-up, as well as the timing and circumstances, are variable depending upon the specifics of your emergency department visit. If you don't have a primary care physician on staff, we will provide you with a referral. We always advise you to contact your personal physician following an emergency department visit to inform them of the circumstance of the visit and for follow-up with them and/or the need for any referrals to a consulting specialist. The emergency department will also refer you to a specialist when appropriate. This referral assures that you have the opportunity for follow-up care with a specialist. All of these measure are taken in an effort to provide you with optimal care, which includes your follow-up. Thank you for coming to the [facility] urgency department for your care today. It was Dr. Bradley's pleasure to take care of you. You were offered admission today but decided to leave AGAINST MEDICAL ADVICE. Please return for shortness of breath, fever, or worsening. Please take your warfarin as prescribed. Return to the emergency department for any concerns. We are always happy to see you. Under all circumstances we always encourage you to contact your private physician who remains a resource for coordinating your care. When calling for follow-up care, please make the office aware that this follow-up is from your recent emergency room visit. If for any reason you are refused follow-up, please contact the [facility] Emergency Department at and asked to speak to the emergency department charge nurse. Critical Care Note - Critical Care Note Comments: Critical Care Note: The patient presented in critical status due to respiratory distress with compromising left-sided pleural effusion requiring reversal of anticoagulation on Coumadin with PCC to allow for safety of thoracentesis The patient required rapid exam, decision making, and frequent re-evaluations during their time in the Emergency Department. Total Critical Care time exclusive of all other billable procedure time provided by myself 77 minutes Sepsis Event Note (ED) - Evaluation Sepsis Screening Result: No Definite Risk - Focused Exam Vital Signs: Vital Signs Temp Temp Temp Pulse Resp BP Pulse Ox 10/29/19 14:36 134 H 21 H 94 L 10/29/19 14:30 107 H 20 118/83 94 L 10/29/19 12:58 126 H 21 H 110/74 100 10/29/19 12:00 97 21 H 126/49 L 100 10/29/19 11:52 99.1 F 10/29/19 11:44 96.8 F L 10/29/19 11:30 94 21 H 126/82 99 10/29/19 10:15 97 21 H 114/72 100 10/29/19 09:47 97.6 F 113 H 21 H 108/68 92 L - My Orders Last 24 Hours: My Active Orders 10/29/19 11:46 Sodium Chloride 0.9% [Saline Flush] 10 ml FLUSH ASDIRECTED PRN Sodium Chloride 0.9% [Saline Flush] 2.5 ml FLUSH ASDIRECTED PRN 10/29/19 11:47 UA W/MICROSCOPIC [URIN] Stat Blood Culture x2 Reflex Set [OM.PC] Stat Saline Lock Insert [OM.PC] Stat Severe Sepsis Onset Time [OM.PC] Stat 10/29/19 11:50 Chest wo Cont [CT] Stat 10/29/19 12:02 CULTURE BLOOD [BC] Stat 10/29/19 12:10 CULTURE BLOOD [BC] Stat 10/29/19 12:33 CULTURE BODY FLUID + SMEAR [RM] Stat - Assessment/Plan Last 24 Hours: My Active Orders 10/29/19 11:46 Sodium Chloride 0.9% [Saline Flush] 10 ml FLUSH ASDIRECTED PRN Sodium Chloride 0.9% [Saline Flush] 2.5 ml FLUSH ASDIRECTED PRN 10/29/19 11:47 UA W/MICROSCOPIC [URIN] Stat Blood Culture x2 Reflex Set [OM.PC] Stat Saline Lock Insert [OM.PC] Stat Severe Sepsis Onset Time [OM.PC] Stat 10/29/19 11:50 Chest wo Cont [CT] Stat 10/29/19 12:02 CULTURE BLOOD [BC] Stat 10/29/19 12:10 CULTURE BLOOD [BC] Stat 10/29/19 12:33 CULTURE BODY FLUID + SMEAR [RM] Stat
[2019-10-29] MEDS ORDERED: Factor IX Complex Human 500 UNIT VIAL IVPUSH SCH (11:00)
[2019-10-29] MEDS ORDERED: Factor IX Complex Human 500 UNIT VIAL IVPUSH ONE (11:36)
[2019-10-29] MEDS ORDERED: Sodium Chloride 0.9% 2.5 ML Syringe FLUSH PRN (11:46)
[2019-10-29] MEDS ORDERED: Sodium Chloride 0.9% 10 ML Syringe FLUSH PRN (11:46)
[2019-10-29] MEDS ORDERED: Meropenem 1 GM in Sodium Chloride 0.9% 100 ML IV ONE (11:46)
[2019-10-29] MEDS ORDERED: Meropenem Premix 1 GM in Premix Bag 1 BAG IV ONE (11:55)
[2019-10-29 12:06] LABS: CARBON DIOXIDE,CO2 28.5 mmol/L (21.0-32.0); POTASSIUM,K 4.4 mmol/L (3.5-5.1)
--- NOTE | 2019-10-29 14:53 | CR ---
INDICATION: Worsening shortness of breath TECHNIQUE: Chest 2 views COMPARISON: October 28, 2019 FINDINGS: Left pleural effusion appears diminished. No left-sided pneumothorax. Mediastinum unchanged with cardiac silhouette enlargement and postoperative changes of valve replacement. Right lung relatively clear. Dense vascular calcifications. COPD. IMPRESSION: Decreased left pleural effusion. No pneumothorax. Improved aeration left lung base. Dictated by Ari Mcfarlane MD @ Oct 29 2019 2:50PM Signed by Dr. Ari Mcfarlane @ Oct 29 2019 2:52PM
--- NOTE | 2019-10-29 15:43 | CT ---
Fever in a fusion left-sided technique noncontrast CT chest. COMPARISON: Chest CT 03/16/2016. CT angio 09/26/2019 Findings: Dense atherosclerotic calcification of the aorta. Mild aneurysmal dilatation measuring 4.1 cm without significant change. Heart is mildly enlarged. No significant pericardial effusion. No mediastinal or hilar adenopathy. Enlargement of the main pulmonary artery which can be seen with pulmonary arterial hypertension. There is a small left pleural effusion this is increased s the prior study. Density in the pleural fluid. This could be related to hemorrhage or debris. There is an patchy lingular and left lower lobe atelectasis and consolidation. Right basilar ground-glass probable atelectasis. No central endobronchial lesion. Again seen is a peripherally partially calcified subpleural left upper lobe soft tissue density measuring approximate 3.6 cm overall this is unchanged from 2017. Median sternotomy. Atrophic appearing kidneys which are only partially seen with numerous small cysts. No suspicious bone lesions. Impression: 1. Small left pleural effusion which is minimally increased in size from the prior study increased density within the pleural fluid could be related to debris or hemorrhage. 2. Increased patchy lingular and left lower lobe atelectasis and consolidation which could reflect pneumonia. 3. Mild aneurysmal dilatation of the ascending thoracic aorta measuring 4.1 cm. Please note that all CT scans at this facility use dose modulation, iterative reconstruction, and/or weight-based dosing when appropriate to reduce radiation dose to as low as reasonably achievable. Dictated by Christina Dukes MD @ Oct 29 2019 3:29PM Signed by Dr. Christina Dukes @ Oct 29 2019 3:42PM
[2019-10-29 18:28] VITALS: BP 132/100; PULSE 99
== END 2019-10-29 15:40 | disposition home or self-care (01) ==
LOC: MW.ED 09:34
DX: J90 Pleural effusion, not elsewhere classified (principal); I48.91 Unspecified atrial fibrillation; I10 Essential (primary) hypertension; J45.909 Unspecified asthma, uncomplicated; Z91.013 Allergy to seafood; Z91.018 Allergy to other foods; Z79.899 Other long term (current) drug therapy; Z79.01 Long term (current) use of anticoagulants
CPT/HCPCS: 32555; 36415; 71046; 71250; 80053; 83605; 83615; 83986; 85025; 85610; 87040; 87070; 87205; 88104; 89050; 93005; 96365; 96375; 99291; C9132; J2185; 93010; 99292

== ENCOUNTER 2019-11-10 07:21 | Emergency (ER) | payer MEDICARE, BC ==
[2019-11-10] MEDS ORDERED: Sodium Chloride 0.9% 10 ML Syringe FLUSH PRN (07:49)
--- NOTE | 2019-11-10 08:06 | EDM.PDOC ---
ED HPI GENERAL MEDICAL PROBLEM - General Chief Complaint: Respiratory Problem Stated Complaint: TROUBLE BREATHING Time Seen by Provider: 11/10/19 07:43 - History of Present Illness INITIAL COMMENTS - FREE TEXT/NARRATIVE: The patient is increasingly short of breath. It is worse when he lies supine. He is a dialysis patient Thursday and this is . The patient says the shortness of breath is similar to what he had 12 days ago when he had a thoracentesis. At that time because he is chronically in atrial fibrillation and on warfarin he had to have his INR reversed and then thoracentesis to remove fluid from his chest cavity. [place] the patient had a failed coronary bypass attempt in [place]. After that he developed the effusion and had a drain while he was there. He returned to the emergency room about 12 days ago and had it drained again. The patient does not have any fever or chills this time. He otherwise feels reasonably healthy. He is due to go back to [place] in days to have the bypass attempted again. History of present illness: [] Review of systems: As per history of present illness and below otherwise all systems reviewed and negative. Past medical history: As per history of present illness and as reviewed below otherwise noncontributory. Surgical history: As per history of present illness and as reviewed below otherwise noncontributory. Social history: No reported history of drug or alcohol abuse. Family history: As per history of present illness and as reviewed below otherwise noncontributory. Physical exam: Constitutional - well developed, well-nourished and in no acute distress HEENT - normocephalic, no evidence of trauma - external nose and mouth normal - no mass in neck and no JVD - mucosae moist EYES - full EOM, PERRL, no icterus - no evidence of inflammation, injection, or drainage Respiratory - no respiratory distress, lung sounds markedly diminished in both lower two thirds. Oxygen saturation 80%-low Cardiovascular - Regular Rhythm with S1 and S2 appreciated and no murmur, gallop or rub. GI - abdomen soft without distension or organomegaly - normal bowel sounds - no guard or rebound Musculoskeletal no gross deformity of long bones or joints - no tenderness, swelling or edema Neurologic - Alert and oriented times four - CN II-XII grossly intact - motor sensory and coordination symmetrically normal Psychiatric - appropriate mood and affect with normal thought content Hematologic - No petechiae or purpura - mucosa appropriate color and sclera not pale - normal nail bed color and refill Integument - no rash or evidence of trauma - normal turgor Diagnostics: [] Therapeutics: [] Impression: [] Plan: [] Definitive disposition and diagnosis as appropriate pending reevaluation and review of above. - Related Data Allergies Allergy/AdvReac Type Severity Reaction Status Date / Time Fish Containing Products Allergy Swelling Verified 11/10/19 07:49 walnut Allergy Other Verified 11/10/19 07:49 Home Meds: Home Meds Pantoprazole Sodium [Protonix] 40 mg PO ACBREAKFAST 11/05/18 [History] Albuterol [Ventolin HFA] 2 puff INH Q6H PRN 12/06/18 [History] Warfarin Sodium [Coumadin] 1 mg PO DAILY 12/06/18 [History] Albuterol [Proventil Neb Soln] 2.5 mg INH Q6H PRN 10/28/19 [History] B Complex W-C No.20/Folic Acid [Virt-Caps Softgel] 1 mg PO PCBREAKFAST 10/28/19 [History] Metoprolol Tartrate [Lopressor] 25 mg PO BID 10/28/19 [History] Midodrine 2.5 mg PO ASDIRECTED 10/28/19 [History] Rosuvastatin [Crestor] 20 mg PO BEDTIME 10/28/19 [History] Sevelamer Carbonate [Renvela] 800 mg PO TIDMEALS 10/28/19 [History] Azithromycin [Zithromax] 250 mg PO DAILY 5 Days #6 tab 11/10/19 [Rx] Past Medical History HEENT History: Reports: None Cardiovascular History: Reports: Afib, Hypertension Respiratory History: Reports: Asthma Gastrointestinal History: Reports: None Genitourinary History: Reports: Renal Disease Other Genitourinary History: on hemodialysis - tstaes he's on transplant list Hematologic History: Reports: Blood Transfusion(s) - Infectious Disease History Infectious Disease History: Reports: Chicken Pox, Measles - Past Surgical History HEENT Surgical History: Reports: Tonsillectomy GI Surgical History: Reports: Other (See Below) Other GI Surgeries/Procedures: abdominal sx Social & Family History - Family History Family Medical History: Noncontributory - Caffeine Use Caffeine Use: Reports: Coffee ED ROS GENERAL - Review of Systems Review Of Systems: Comprehensive ROS is negative, except as noted in HPI. ED EXAM, GENERAL - Physical Exam Exam: See Below Free Text/Narrative:: My history and physical is in the HPI EKG INTERPRETATION EKG Date: 11/10/19 Rhythm: A-Fib Rate (Beats/Min): 70 P-Wave: Absent QRS: Normal Comparison: Other: (Compared to 10/28/2019) EKG Interpretation Comments: No acute injury Course - Vital Signs Text/Narrative:: X-ray revealed what looked like fluid overload to the radiologist but possible infiltrate. He has a white count. I think this is an infiltrate. The patient has not been in the inpatient since after 04 October. Discussed with the pharmacist. This is probably not nosocomial and indeed is an infection. Plan Rocephin and then Zithromax. He has a follow-up in 5 days in [place]. I considered admission but the patient insisted on discharge. His blood gas did not reveal any serious respiratory compromise. I covered him with antibiotics because of the white count and the possibility that the increased markings in the right lobe were pneumonia. The patient will follow up with his primary doctor. His INR was elevated so he will hold his warfarin today tomorrow and Thursday. The patient is discharged in satisfactory condition. Last Recorded V/S: Last Vital Signs Temp 96.1 F L 11/10/19 07:33 Pulse 72 11/10/19 08:30 Resp 20 11/10/19 08:30 BP 103/63 11/10/19 08:30 Pulse Ox 99 11/10/19 08:30 - Orders/Labs/Meds Orders: Active Orders 24 hr Category Date Time Status EKG 12 Lead [EKG Documentation Completion] [RC] STAT Care 11/10/19 08:05 Active CULTURE BLOOD [BC] Stat Lab 11/10/19 09:05 Received CULTURE BLOOD [BC] Stat Lab 11/10/19 09:16 Received Sodium Chloride 0.9% [Saline Flush] Med 11/10/19 07:49 Active 10 ml FLUSH ASDIRECTED PRN Sodium Chloride 0.9% [Saline Flush] Med 11/10/19 07:49 Active 2.5 ml FLUSH ASDIRECTED PRN cefTRIAXone [Rocephin in Dextrose,Iso-Osm 1 GM/50 ML] 1 Med 11/10/19 10:56 Active gm Premix Bag 1 bag IV ONETIME cefTRIAXone [Rocephin in Dextrose,Iso-Osm 1 GM/50 ML] 1 [facility] 11/10/19 10:58 Active gm Premix Bag 1 bag IV ONETIME Blood Culture x2 Reflex Set [OM.PC] Stat Oth 11/10/19 08:54 Ordered Saline Lock Insert [OM.PC] Stat Ot 11/10/19 07:49 Ordered Medication Orders Ceftriaxone Sodium/Dextrose 1 (gm/ Premix) 50 mls @ 100 mls/hr IV ONETIME ONE Stop: 11/10/19 11:25 Sodium Chloride (Saline Flush) 10 ml FLUSH ASDIRECTED PRN PRN Reason: Keep Vein Open Last Admin: 11/10/19 08:52 Dose: 10 ml Documented by: MARYURI Sodium Chloride (Saline Flush) 2.5 ml FLUSH ASDIRECTED PRN PRN Reason: Keep Vein Open Last Admin: 11/10/19 08:52 Dose: 2.5 ml Documented by: Admin: 11/10/19 08:51 Dose: 2.5 ml Documented by: MARYURI Labs: Laboratory Tests 11/10/19 11/10/19 11/10/19 Range/Units 07:55 07:55 07:55 WBC 13.26 H (4.0-11.0) K/uL RBC 2.91 L (4.50-5.90) M/uL Hgb 8.8 L (13.0-17.0) g/dL Hct 29.5 L (38.0-50.0) % MCV 101.4 H (80.0-98.0) fL MCH 30.2 (27.0-32.0) pg MCHC 29.8 L (31.0-37.0) g/dL RDW Std Deviation 69.6 H (28.0-62.0) fl RDW Coeff of Nii 19 H (11.0-15.0) % Plt Count 376 (150-400) K/uL MPV 9.30 (7.40-12.00) fL Neut % (Auto) 86.5 H (48.0-80.0) % Lymph % (Auto) 6.1 L (16.0-40.0) % [place] % (Auto) 7.1 (0.0-15.0) % Eos % (Auto) 0.1 (0.0-7.0) % Baso % (Auto) 0.2 (0.0-1.5) % Neut # (Auto) 11.5 H (1.4-5.7) K/uL Lymph # (Auto) 0.8 (0.6-2.4) K/uL [place] # (Auto) 0.9 H (0.0-0.8) K/uL Eos # (Auto) 0.0 (0.0-0.7) K/uL Baso # (Auto) 0.0 (0.0-0.1) K/uL Nucleated RBC % 0.3 /100WBC Nucleated RBCs # 0 K/uL INR 3.05 ABG pH (7.35-7.45) ABG pCO2 (35-45) mmHG ABG pO2 (75-100) mmHG ABG HCO3 (22-26) mEq/L ABG Total CO2 ABG Base Excess (-2.0-2.0) Sodium 137 (136-148) mmol/L Potassium 4.8 (3.5-5.1) mmol/L Chloride 98 (98-107) mmol/L Carbon Dioxide 27.6 (21.0-32.0) mmol/L BUN 36 H (7.0-18.0) mg/dL Creatinine 4.1 H (0.8-1.3) mg/dL Est Cr Clr Drug Dosing 18.68 mL/min Estimated GFR (MDRD) 14.9 ml/min Glucose 88 (74-106) mg/dL Calcium 9.1 (8.5-10.1) mg/dL Total Bilirubin 0.5 (0.2-1.0) mg/dL AST 34 (15-37) IU/L ALT 28 (14-63) IU/L Alkaline Phosphatase 182 H (46-116) U/L Total Protein 6.8 (6.4-8.2) g/dL Albumin 2.1 L (3.4-5.0) g/dL Globulin 4.7 H (2.6-4.0) g/dL Albumin/Globulin Ratio 0.5 L (0.9-1.6) 11/10/19 Range/Units 09:40 WBC (4.0-11.0) K/uL RBC (4.50-5.90) M/uL Hgb (13.0-17.0) g/dL Hct (38.0-50.0) % MCV (80.0-98.0) fL MCH (27.0-32.0) pg MCHC (31.0-37.0) g/dL RDW Std Deviation (28.0-62.0) fl RDW Coeff of Nii (11.0-15.0) % Plt Count (150-400) K/uL MPV (7.40-12.00) fL Neut % (Auto) (48.0-80.0) % Lymph % (Auto) (16.0-40.0) % [place] % (Auto) (0.0-15.0) % Eos % (Auto) (0.0-7.0) % Baso % (Auto) (0.0-1.5) % Neut # (Auto) (1.4-5.7) K/uL Lymph # (Auto) (0.6-2.4) K/uL [place] # (Auto) (0.0-0.8) K/uL Eos # (Auto) (0.0-0.7) K/uL Baso # (Auto) (0.0-0.1) K/uL Nucleated RBC % /100WBC Nucleated RBCs # K/uL INR ABG pH 7.394 (7.35-7.45) ABG pCO2 44 (35-45) mmHG ABG pO2 87 (75-100) mmHG ABG HCO3 27 H (22-26) mEq/L ABG Total CO2 25.7 ABG Base Excess 1.9 (-2.0-2.0) Sodium (136-148) mmol/L Potassium (3.5-5.1) mmol/L Chloride (98-107) mmol/L Carbon Dioxide (21.0-32.0) mmol/L BUN (7.0-18.0) mg/dL Creatinine (0.8-1.3) mg/dL Est Cr Clr Drug Dosing mL/min Estimated GFR (MDRD) ml/min Glucose (74-106) mg/dL Calcium (8.5-10.1) mg/dL Total Bilirubin (0.2-1.0) mg/dL AST (15-37) IU/L ALT (14-63) IU/L Alkaline Phosphatase (46-116) U/L Total Protein (6.4-8.2) g/dL Albumin (3.4-5.0) g/dL Globulin (2.6-4.0) g/dL Albumin/Globulin Ratio (0.9-1.6) Meds: Medications Generic Name Dose Route Start Last Admin Trade Name Freq PRN Reason Stop Dose Admin Ceftriaxone Sodium/Dextrose 1 50 mls @ 100 mls/hr 11/10/19 10:56 gm/ Premix IV 11/10/19 11:25 ONETIME ONE Sodium Chloride 10 ml 11/10/19 07:49 11/10/19 08:52 Saline Flush FLUSH 10 ml ASDIRECTED PRN Administration Keep Vein Open Sodium Chloride 2.5 ml 11/10/19 07:49 11/10/19 08:52 Saline Flush FLUSH 2.5 ml ASDIRECTED PRN Administration Keep Vein Open Departure - Departure Time of Disposition: 10:59 Disposition: Home, Self-Care 01 Condition: Good Clinical Impression: Right upper lobe pneumonia, Pneumonia, Mild congestive heart failure - Discharge Information Prescriptions: Azithromycin [Zithromax] 250 mg PO DAILY 5 Days #6 tab Instructions: Community-Acquired Pneumonia, Adult, [id number] Referrals: Braden Alberts MD [Primary Care Provider] - Forms: ED Department Discharge Additional Instructions: Hold warfarin today and hold warfarin on Thursday. Keep your appointment in [place] on Thursday. Return if worse The following information is given to patients seen in the emergency department who are being discharged to home. This information is to outline your options for follow-up care. We provide all patients seen in our emergency department with a follow-up referral. The need for follow-up, as well as the timing and circumstances, are variable depending upon the specifics of your emergency department visit. If you don't have a primary care physician on staff, we will provide you with a referral. We always advise you to contact your personal physician following an emergency department visit to inform them of the circumstance of the visit and for follow-up with them and/or the need for any referrals to a consulting specialist. The emergency department will also refer you to a specialist when appropriate. This referral assures that you have the opportunity for follow-up care with a specialist. All of these measure are taken in an effort to provide you with optimal care, which includes your follow-up. Under all circumstances we always encourage you to contact your private physician who remains a resource for coordinating your care. When calling for follow-up care, please make the office aware that this follow-up is from your recent emergency room visit. If for any reason you are refused follow-up, please contact the [facility] Emergency Department at and asked to speak to the emergency department charge nurse. Sepsis Event Note (ED) - Evaluation Sepsis Screening Result: No Definite Risk - Focused Exam Vital Signs: Vital Signs Temp Pulse Resp BP Pulse Ox 11/10/19 08:30 72 20 103/63 99 11/10/19 07:50 95 11/10/19 07:33 96.1 F L 75 20 101/56 L 86 L - My Orders Last 24 Hours: My Active Orders 11/10/19 07:49 Sodium Chloride 0.9% [Saline Flush] 10 ml FLUSH ASDIRECTED PRN Sodium Chloride 0.9% [Saline Flush] 2.5 ml FLUSH ASDIRECTED PRN Saline Lock Insert [OM.PC] Stat 11/10/19 08:05 EKG 12 Lead [EKG Documentation Completion] [RC] STAT 11/10/19 08:54 Blood Culture x2 Reflex Set [OM.PC] Stat 11/10/19 09:05 CULTURE BLOOD [BC] Stat 11/10/19 09:16 CULTURE BLOOD [BC] Stat 11/10/19 10:56 cefTRIAXone [Rocephin in Dextrose,Iso-Osm 1 GM/50 ML] 1 gm Premix Bag 1 bag IV ONETIME 11/10/19 10:58 cefTRIAXone [Rocephin in Dextrose,Iso-Osm 1 GM/50 ML] 1 gm Premix Bag 1 bag IV ONETIME - Assessment/Plan Last 24 Hours: My Active Orders 11/10/19 07:49 Sodium Chloride 0.9% [Saline Flush] 10 ml FLUSH ASDIRECTED PRN Sodium Chloride 0.9% [Saline Flush] 2.5 ml FLUSH ASDIRECTED PRN Saline Lock Insert [OM.PC] Stat 11/10/19 08:05 EKG 12 Lead [EKG Documentation Completion] [RC] STAT 11/10/19 08:54 Blood Culture x2 Reflex Set [OM.PC] Stat 11/10/19 09:05 CULTURE BLOOD [BC] Stat 11/10/19 09:16 CULTURE BLOOD [BC] Stat 11/10/19 10:56 cefTRIAXone [Rocephin in Dextrose,Iso-Osm 1 GM/50 ML] 1 gm Premix Bag 1 bag IV ONETIME 11/10/19 10:58 cefTRIAXone [Rocephin in Dextrose,Iso-Osm 1 GM/50 ML] 1 gm Premix Bag 1 bag IV ONETIME
--- NOTE | 2019-11-10 08:22 | CR ---
Indication: Shortness of breath. Recent thoracentesis. Technique: Chest 1 view Comparison: October 29, 2019 Findings/Impression: Cardiovascular and mediastinum: Mild cardiomegaly. Lungs and pleural space: New interstitial edema is most prominent in the right lung. This could indicate CHF or fluid overload. Acute infectious or inflammatory process is less likely. Small left pleural effusion has improved. Atelectasis in the mid left lung is unchanged. No pneumothorax. Bones and soft tissues: No acute findings. Dictated by Stalin Courtney MD @ Nov 10 2019 8:17AM Signed by Dr. Stalin Courtney @ Nov 10 2019 8:21AM
[2019-11-10 08:26] LABS: CARBON DIOXIDE,CO2 27.6 mmol/L (21.0-32.0); POTASSIUM,K 4.8 mmol/L (3.5-5.1)
[2019-11-10 08:41] VITALS: BP 103/63; PULSE 72
[2019-11-10] MEDS: Sodium Chloride 0.9% 2.5 ML Syringe FLUSH PRN ×2 (08:51→08:52)
[2019-11-10] MEDS ORDERED: cefTRIAXone 1 GM in Premix Bag 1 BAG IV ONE ×2 (10:56→10:58)
== END 2019-11-10 11:38 | disposition home or self-care (01) ==
LOC: MW.ED 07:21
DX: J18.9 Pneumonia, unspecified organism (principal); I11.0 Hypertensive heart disease with heart failure; I50.9 Heart failure, unspecified; I48.91 Unspecified atrial fibrillation; J45.909 Unspecified asthma, uncomplicated; Z91.018 Allergy to other foods; Z91.013 Allergy to seafood; Z79.01 Long term (current) use of anticoagulants; Z79.899 Other long term (current) drug therapy
CPT/HCPCS: 36415; 36600; 71045; 80053; 82803; 85025; 85610; 87040; 93005; 96365; 99285; J0696; 99283

== ENCOUNTER 2019-12-13 16:37 | Observation (INO) | payer MEDICARE, BC ==
[2019-12-13] MEDS ORDERED: Sodium Chloride 0.9% 2.5 ML Syringe FLUSH PRN (16:55)
[2019-12-13] MEDS ORDERED: Sodium Chloride 0.9% 10 ML Syringe FLUSH PRN (16:55)
--- NOTE | 2019-12-13 16:57 | EDM.PDOC ---
ED HPI GENERAL MEDICAL PROBLEM - General Chief Complaint: Respiratory Problem Stated Complaint: BREATHING PROBLEM Time Seen by Provider: 12/13/19 16:52 Source of Information: Reports: Patient, Old Records History Limitations: Reports: No Limitations - History of Present Illness INITIAL COMMENTS - FREE TEXT/NARRATIVE: This is a very pleasant 64-year-old male with a past medical history of CAD s/p failed CABG, congestive heart failure, ESRD on MWF HD, atrial fibrillation on warfarin, asthma, pericardial effusion, COPD. He has had several emergency department presentations within the past few months for shortness of breath. At his most recent ED visit on November 10, 2019, he was diagnosed with pneumonia and started on antibiotics. He has a history of recurrent pleural effusions complicated by his warfarin anticoagulation. He recently had a visit where his warfarin anticoagulation was reversed with Praveen in the emergency department to perform a thoracentesis. Since his last ED visit about 1 month ago, he states that he has had some degree of shortness of breath the entire time. This worsened somewhat over the past day or 2. He did go to hemodialysis yesterday and had a full run. He presents to the ED with worsening shortness of breath over the past few weeks. He denies any chest discomfort, pain, fever, chills, vomiting, diarrhea, or any complaints other than mildly worsening shortness of breath. He states that he has not missed any warfarin dosages lately. ROS: A 10-point review of systems was negative, except as noted in the HPI (or in the ROS section of this note). Past medical history: Reviewed, no additional pertinent history. Surgical history: Reviewed in system, no additional pertinent history. Social history: Reviewed in system, no additional pertinent history. Family history: Reviewed in system, no additional pertinent history. PHYSICAL EXAM Vital signs reviewed. Nursing notes reviewed. Constitutional: Awake, alert, non-distressed, thin appearing man. Head: Normocephalic, atraumatic. Eyes: EOMI, conjunctiva normal, no discharge, no scleral icterus. Ears, Nose, Throat: External ears and nose normal, moist oral mucosa. Cardiovascular: 2+ radial pulse, capillary refill less than 2 seconds. Left upper extremity AV fistula with good thrill. Pulmonary: normal work of breathing, no accessory muscle use. Abdomen/GI: Soft, nontender, nondistended, no guarding or rigidity, no masses. Musculoskeletal: No deformities. Integumentary: Appropriate color for ethnicity, warm, dry, no pallor or jaundice, no rash. Neurologic: Alert, answering questions appropriately, normal speech, no facial droop, moving all extremities well. Psychiatric: Appropriate mood and affect, normal thought process. - Related Data Allergies Allergy/AdvReac Type Severity Reaction Status Date / Time Fish Containing Products Allergy Swelling Verified 12/13/19 16:50 walnut Allergy Other Verified 12/13/19 16:50 Home Meds: Home Meds Pantoprazole Sodium [Protonix] 40 mg PO ACBREAKFAST 11/05/18 [History] Albuterol [Ventolin HFA] 2 puff INH Q6H PRN 12/06/18 [History] Warfarin Sodium [Coumadin] 1 mg PO DAILY 12/06/18 [History] Albuterol [Proventil Neb Soln] 2.5 mg INH Q6H PRN 10/28/19 [History] B Complex W-C No.20/Folic Acid [Virt-Caps Softgel] 1 mg PO PCBREAKFAST 10/28/19 [History] Metoprolol Tartrate [Lopressor] 25 mg PO BID 10/28/19 [History] Midodrine 2.5 mg PO ASDIRECTED 10/28/19 [History] Rosuvastatin [Crestor] 20 mg PO BEDTIME 10/28/19 [History] Sevelamer Carbonate [Renvela] 800 mg PO TIDMEALS 10/28/19 [History] Past Medical History HEENT History: Reports: None Cardiovascular History: Reports: Afib, Hypertension Respiratory History: Reports: Asthma Other Respiratory History: pleural effusion Gastrointestinal History: Reports: None Genitourinary History: Reports: Renal Disease Other Genitourinary History: on hemodialysis - tstaes he's on transplant list Hematologic History: Reports: Blood Transfusion(s) - Infectious Disease History Infectious Disease History: Reports: Chicken Pox, Measles - Past Surgical History HEENT Surgical History: Reports: Tonsillectomy GI Surgical History: Reports: Other (See Below) Other GI Surgeries/Procedures: abdominal sx Social & Family History - Family History Family Medical History: Noncontributory - Caffeine Use Caffeine Use: Reports: Coffee ED ROS GENERAL - Review of Systems Review Of Systems: See Below ED EXAM, GENERAL - Physical Exam Exam: See Below Course - Vital Signs Text/Narrative:: Patient hemodynamically stable, afebrile, well-appearing, looks nontoxic. Differential diagnosis includes but is not limited to: CHF, ACS, PE, pneumonia, pneumothorax, asthma exacerbation, COPD exacerbation, pleural effusion, pericardial effusion, pericarditis, viral URI, influenza, bronchitis, airway foreign body, anxiety state, and many others. Labs show stable macrocytic anemia, no leukocytosis, normal platelets. INR is subtherapeutic at 1.70. Blood gas shows mildly low PO2 but patient has normal oxygen saturations at bedside of 95% on room air. Metabolic panel shows hyperkalemia with potassium of 5.8 (no ECG changes), creatinine 5.4 on ESRD. LFTs show mildly elevated alkaline phosphatase at 190. Troponin is negative. BNP is 4618. 6:18 PM: We are awaiting chest x-ray reads. Patient is resting comfortably. Twelve-lead EKG does show new QS complexes in leads III and aVF, concerning for a silent myocardial infarction, these were not seen on most recent ECG from 11/10/2019. His BNP is fairly markedly elevated but he does have ESRD and his BMP readings have been this high before. His lungs are clear to auscultation, he does not appear grossly volume overloaded. 7 PM: Chest x-rays are clear. I did discuss with the patient's content manager the likely subacute nature of the patient's complaints and new ECG findings. He would favor overnight observation to have troponins trended and would like to see the patient in the morning as a consult. I spoke with the hospitalist Dr. Luna who agrees to admit. We did discuss obtaining a CT pulmonary angiogram or starting anticoagulation, Dr. Luna states we can hold off on these for now and he will make these decisions after the patient is admitted. COVID swab ordered and pending at shift change. I signed up to my colleague Dr. Sinclair awaiting this test result awaiting admission. Last Recorded V/S: Last Vital Signs Temp 36.6 C 12/13/19 16:47 Pulse 61 12/13/19 16:47 Resp 20 12/13/19 16:47 BP 98/49 L 12/13/19 16:47 Pulse Ox 92 L 12/13/19 16:47 - Orders/Labs/Meds Orders: Active Orders 24 hr Category Date Time Status Admission Status [Patient Status] [ADT] Stat ADT 12/13/19 18:48 Active Cardiac Monitoring [RC] . DIRECTED Care 12/13/19 16:55 Active EKG Documentation Completion [RC] STAT Care 12/13/19 16:55 Active Pulse Oximetry [RC] ASDIRECTED Care 12/13/19 16:55 Active Nothing Per Oral Diet [DIET] Diet 12/13/19 Breakfast Active CORONAVIRUS COVID-19 VASILIY [MOLEC] Stat Lab 12/13/19 18:50 Received Sodium Chloride 0.9% [Saline Flush] Med 12/13/19 16:55 Active 10 ml FLUSH ASDIRECTED PRN Sodium Chloride 0.9% [Saline Flush] Med 12/13/19 16:55 Active 2.5 ml FLUSH ASDIRECTED PRN Saline Lock Insert [OM.PC] Stat Oth 12/13/19 16:55 Ordered Medication Orders Sodium Chloride (Saline Flush) 10 ml FLUSH ASDIRECTED PRN PRN Reason: Keep Vein Open Last Admin: 12/13/19 17:58 Dose: 10 ml Documented by: HEATHER Sodium Chloride (Saline Flush) 2.5 ml FLUSH ASDIRECTED PRN PRN Reason: Keep Vein Open Last Admin: 12/13/19 17:58 Dose: 2.5 ml Documented by: HEATHER Labs: Laboratory Tests 12/13/19 12/13/19 12/13/19 Range/Units 17:09 17:09 17:09 WBC (4.0-11.0) K/uL RBC (4.50-5.90) M/uL Hgb (13.0-17.0) g/dL Hct (38.0-50.0) % MCV (80.0-98.0) fL MCH (27.0-32.0) pg MCHC (31.0-37.0) g/dL RDW Std Deviation (28.0-62.0) fl RDW Coeff of Nii (11.0-15.0) % Plt Count (150-400) K/uL MPV (7.40-12.00) fL Neut % (Auto) (48.0-80.0) % Lymph % (Auto) (16.0-40.0) % [place] % (Auto) (0.0-15.0) % Eos % (Auto) (0.0-7.0) % Baso % (Auto) (0.0-1.5) % Neut # (Auto) (1.4-5.7) K/uL Lymph # (Auto) (0.6-2.4) K/uL [place] # (Auto) (0.0-0.8) K/uL Eos # (Auto) (0.0-0.7) K/uL Baso # (Auto) (0.0-0.1) K/uL Nucleated RBC % /100WBC Nucleated RBCs # K/uL INR 1.70 VBG pH 7.36 (7.31-7.41) VBG pCO2 56 H (35-45) mmHG VBG pO2 26 L (30-40) mmHG VBG HCO3 31 H (22-30) mEq/L VBG Total CO2 30 L (41-51) mmol/L VBG Base Excess 4.6 H (-3.0-3.0) Lactate 1.1 (0.20-2.00) mmol/L Sodium (136-148) mmol/L Potassium (3.5-5.1) mmol/L Chloride (98-107) mmol/L Carbon Dioxide (21.0-32.0) mmol/L BUN (7.0-18.0) mg/dL Creatinine (0.8-1.3) mg/dL Est Cr Clr Drug Dosing mL/min Estimated GFR (MDRD) ml/min Glucose (74-106) mg/dL Calcium (8.5-10.1) mg/dL Total Bilirubin (0.2-1.0) mg/dL AST (15-37) IU/L ALT (14-63) IU/L Alkaline Phosphatase (46-116) U/L Troponin I (0.000-0.056) ng/mL B-Natriuretic Peptide (<100) PG/ML Total Protein (6.4-8.2) g/dL Albumin (3.4-5.0) g/dL Globulin (2.6-4.0) g/dL Albumin/Globulin Ratio (0.9-1.6) 12/13/19 12/13/19 12/13/19 Range/Units 17:09 17:09 17:09 WBC 7.20 (4.0-11.0) K/uL RBC 3.33 L (4.50-5.90) M/uL Hgb 9.7 L (13.0-17.0) g/dL Hct 33.4 L (38.0-50.0) % MCV 100.3 H (80.0-98.0) fL MCH 29.1 (27.0-32.0) pg MCHC 29.0 L (31.0-37.0) g/dL RDW Std Deviation 69.7 H (28.0-62.0) fl RDW Coeff of Nii 19 H (11.0-15.0) % Plt Count 261 (150-400) K/uL MPV 9.70 (7.40-12.00) fL Neut % (Auto) 80.0 (48.0-80.0) % Lymph % (Auto) 11.1 L (16.0-40.0) % [place] % (Auto) 6.3 (0.0-15.0) % Eos % (Auto) 2.2 (0.0-7.0) % Baso % (Auto) 0.4 (0.0-1.5) % Neut # (Auto) 5.8 H (1.4-5.7) K/uL Lymph # (Auto) 0.8 (0.6-2.4) K/uL [place] # (Auto) 0.5 (0.0-0.8) K/uL Eos # (Auto) 0.2 (0.0-0.7) K/uL Baso # (Auto) 0.0 (0.0-0.1) K/uL Nucleated RBC % 0.0 /100WBC Nucleated RBCs # 0 K/uL INR VBG pH (7.31-7.41) VBG pCO2 (35-45) mmHG VBG pO2 (30-40) mmHG VBG HCO3 (22-30) mEq/L VBG Total CO2 (41-51) mmol/L VBG Base Excess (-3.0-3.0) Lactate (0.20-2.00) mmol/L Sodium 136 (136-148) mmol/L Potassium 5.8 H (3.5-5.1) mmol/L Chloride 97 L (98-107) mmol/L Carbon Dioxide 30.3 (21.0-32.0) mmol/L BUN 43 H (7.0-18.0) mg/dL Creatinine 5.4 H (0.8-1.3) mg/dL Est Cr Clr Drug Dosing 14.18 mL/min Estimated GFR (MDRD) 10.8 ml/min Glucose 111 H (74-106) mg/dL Calcium 9.1 (8.5-10.1) mg/dL Total Bilirubin 0.6 (0.2-1.0) mg/dL AST 21 (15-37) IU/L ALT 22 (14-63) IU/L Alkaline Phosphatase 190 H (46-116) U/L Troponin I < 0.050 (0.000-0.056) ng/mL B-Natriuretic Peptide 4618 H (<100) PG/ML Total Protein 7.4 (6.4-8.2) g/dL Albumin 2.8 L (3.4-5.0) g/dL Globulin 4.6 H (2.6-4.0) g/dL Albumin/Globulin Ratio 0.6 L (0.9-1.6) Meds: Medications Generic Name Dose Route Start Last Admin Trade Name Freq PRN Reason Stop Dose Admin Sodium Chloride 10 ml 12/13/19 16:55 12/13/19 17:58 Saline Flush FLUSH 10 ml ASDIRECTED PRN Administration Keep Vein Open Sodium Chloride 2.5 ml 12/13/19 16:55 12/13/19 17:58 Saline Flush FLUSH 2.5 ml ASDIRECTED PRN Administration Keep Vein Open Departure - Departure Time of Disposition: 19:00 Disposition: Refer to Observation Condition: Good Clinical Impression: Dyspnea Qualifiers: Dyspnea type: shortness of breath Qualified Code(s): R06.02 - Shortness of breath - Discharge Information Sepsis Event Note (ED) - Evaluation Sepsis Screening Result: No Definite Risk - Focused Exam Vital Signs: Vital Signs Temp Pulse Resp BP Pulse Ox 10/13/20 16:47 36.6 C 61 20 98/49 L 92 L - My Orders Last 24 Hours: My Active Orders 12/13/19 Breakfast Nothing Per Oral Diet [DIET] 12/13/19 16:55 Cardiac Monitoring [RC] . DIRECTED EKG Documentation Completion [RC] STAT Pulse Oximetry [RC] ASDIRECTED Sodium Chloride 0.9% [Saline Flush] 10 ml FLUSH ASDIRECTED PRN Sodium Chloride 0.9% [Saline Flush] 2.5 ml FLUSH ASDIRECTED PRN Saline Lock Insert [OM.PC] Stat 12/13/19 18:48 Admission Status [Patient Status] [ADT] Stat 12/13/19 18:50 CORONAVIRUS COVID-19 VASILIY [MOLEC] Stat - Assessment/Plan Last 24 Hours: My Active Orders 12/13/19 Breakfast Nothing Per Oral Diet [DIET] 12/13/19 16:55 Cardiac Monitoring [RC] . DIRECTED EKG Documentation Completion [RC] STAT Pulse Oximetry [RC] ASDIRECTED Sodium Chloride 0.9% [Saline Flush] 10 ml FLUSH ASDIRECTED PRN Sodium Chloride 0.9% [Saline Flush] 2.5 ml FLUSH ASDIRECTED PRN Saline Lock Insert [OM.PC] Stat 12/13/19 18:48 Admission Status [Patient Status] [ADT] Stat 12/13/19 18:50 CORONAVIRUS COVID-19 VASILIY [MOLEC] Stat
[2019-12-13 17:54] LABS: BLOOD UREA NITROGEN,BUN 43 mg/dL (7.0-18.0); CARBON DIOXIDE,CO2 30.3 mmol/L (21.0-32.0); CHLORIDE,CL 97 mmol/L (98-107); GLUCOSE RANDOM 111 mg/dL (74-106); POTASSIUM,K 5.8 mmol/L (3.5-5.1); SODIUM,NA 136 mmol/L (136-148)
--- NOTE | 2019-12-13 18:29 | CR ---
Indication: Dyspnea Technique: PA and lateral views of the chest. Comparison: November 10, 2019 Findings: Median sternotomy wires are identified. The heart is enlarged. A small left pleural effusion is identified. Fluid is identified in the left major fissure. Diffusely increased interstitial opacities are identified bilaterally. Impression: Stable chest x-ray. Dictated by Penny Alexander MD @ Dec 13 2019 6:25PM Signed by Dr. Penny Alexander @ Dec 13 2019 6:27PM
[2019-12-13] MEDS ORDERED: Albuterol 0.083% 2.5 MG/3 ML Neb Soln INH PRN (21:46)
--- NOTE | 2019-12-13 21:59 | PCM.HP.2 ---
H&P History of Present Illness - General Date of Service: 12/13/19 Admit Problem/Dx: Admission Diagnosis/Problem Admission Diagnosis/Problem Dyspnea - History of Present Illness Initial Comments - Free Text/Narative: 64 yo male with a past medical history of CAD s/p failed CABG, CHF, ESRD on MWF HD, atrial fibrillation on warfarin, asthma, pericardial effusion, COPD who presented to the ED with shortness of breath. PAtient reports shortness of breath since his failed CABG. The shortness of breath has gotten worse this week. He reports shortness of breath happens mainly at night. He does report some mild lower leg edema - Related Data Allergies/Adverse Reactions: Allergies Allergy/AdvReac Type Severity Reaction Status Date / Time Fish Containing Products Allergy Swelling Verified 12/13/19 21:03 walnut Allergy Other Verified 12/13/19 21:03 Home Medications: Home Meds Pantoprazole Sodium [Protonix] 40 mg PO ACBREAKFAST 11/05/18 [History] Albuterol [Ventolin HFA] 2 puff INH Q6H PRN 12/06/18 [History] Warfarin Sodium [Coumadin] 1 mg PO DAILY 12/06/18 [History] Albuterol [Proventil Neb Soln] 2.5 mg INH Q6H PRN 10/28/19 [History] B Complex W-C No.20/Folic Acid [Virt-Caps Softgel] 1 mg PO PCBREAKFAST 10/28/19 [History] Metoprolol Tartrate [Lopressor] 25 mg PO BID 10/28/19 [History] Midodrine 2.5 mg PO .ON DIALYSIS DAYS 10/28/19 [History] Rosuvastatin [Crestor] 20 mg PO BEDTIME 10/28/19 [History] Sevelamer Carbonate [Renvela] 2,400 mg PO TIDMEALS PRN 10/28/19 [History] Amiodarone HCl 200 mg PO DAILY 12/14/19 [History] Clopidogrel [Plavix] 75 mg PO DAILY 12/14/19 [History] Diltiazem HCl [Diltiazem 24Hr ER] 360 mg PO DAILY 12/14/19 [History] Past Medical History HEENT History: Reports: None Cardiovascular History: Reports: Afib, Hypertension Respiratory History: Reports: Asthma Other Respiratory History: pleural effusion Gastrointestinal History: Reports: None Genitourinary History: Reports: Renal Disease Other Genitourinary History: on hemodialysis - tstaes he's on transplant list Hematologic History: Reports: Blood Transfusion(s) - Infectious Disease History Infectious Disease History: Reports: Chicken Pox, Measles - Past Surgical History HEENT Surgical History: Reports: Tonsillectomy GI Surgical History: Reports: Other (See Below) Other GI Surgeries/Procedures: abdominal sx Social & Family History - Family History Family Medical History: Noncontributory - Tobacco Use Tobacco Use Status *Q: Never Tobacco User - Caffeine Use Caffeine Use: Reports: Coffee - Recreational Drug Use Recreational Drug Use: No H&P Review of Systems - Review of Systems: Review Of Systems: Comprehensive ROS is negative, except as noted in HPI. Exam - Exam Exam: See Below - Vital Signs Vital Signs: Last Vital Signs Temp 36.4 C 12/13/19 21:00 Pulse 73 12/13/19 21:00 Resp 20 12/13/19 21:00 BP 103/67 12/13/19 21:00 Pulse Ox 96 12/13/19 21:00 Weight: 72.575 kg - Exam General: Alert, Oriented HEENT: Mucosa Moist & [place] Lungs: Clear to Auscultation, Normal Respiratory Effort Cardiovascular: Regular Rate, Regular Rhythm GI/Abdominal Exam: Normal Bowel Sounds, Soft, Non-Tender Extremities: Non-Tender, No Pedal Edema, Pedal Edema (+1) Skin: Warm, Dry, Intact Neurological: Normal Gait - Patient Data Lab Results Last 24 hrs: Laboratory Results - last 24 hr 12/13/19 12/13/19 12/13/19 Range/Units 17:09 17:09 17:09 WBC (4.0-11.0) K/uL RBC (4.50-5.90) M/uL Hgb (13.0-17.0) g/dL Hct (38.0-50.0) % MCV (80.0-98.0) fL MCH (27.0-32.0) pg MCHC (31.0-37.0) g/dL RDW Std Deviation (28.0-62.0) fl RDW Coeff of Nii (11.0-15.0) % Plt Count (150-400) K/uL MPV (7.40-12.00) fL Neut % (Auto) (48.0-80.0) % Lymph % (Auto) (16.0-40.0) % [place] % (Auto) (0.0-15.0) % Eos % (Auto) (0.0-7.0) % Baso % (Auto) (0.0-1.5) % Neut # (Auto) (1.4-5.7) K/uL Lymph # (Auto) (0.6-2.4) K/uL [place] # (Auto) (0.0-0.8) K/uL Eos # (Auto) (0.0-0.7) K/uL Baso # (Auto) (0.0-0.1) K/uL Nucleated RBC % /100WBC Nucleated RBCs # K/uL INR 1.70 VBG pH 7.36 (7.31-7.41) VBG pCO2 56 H (35-45) mmHG VBG pO2 26 L (30-40) mmHG VBG HCO3 31 H (22-30) mEq/L VBG Total CO2 30 L (41-51) mmol/L VBG Base Excess 4.6 H (-3.0-3.0) Lactate 1.1 (0.20-2.00) mmol/L Sodium (136-148) mmol/L Potassium (3.5-5.1) mmol/L Chloride (98-107) mmol/L Carbon Dioxide (21.0-32.0) mmol/L BUN (7.0-18.0) mg/dL Creatinine (0.8-1.3) mg/dL Est Cr Clr Drug Dosing mL/min Estimated GFR (MDRD) ml/min Glucose (74-106) mg/dL Calcium (8.5-10.1) mg/dL Total Bilirubin (0.2-1.0) mg/dL AST (15-37) IU/L ALT (14-63) IU/L Alkaline Phosphatase (46-116) U/L Troponin I (0.000-0.056) ng/mL B-Natriuretic Peptide (<100) PG/ML Total Protein (6.4-8.2) g/dL Albumin (3.4-5.0) g/dL Globulin (2.6-4.0) g/dL Albumin/Globulin Ratio (0.9-1.6) SARS-CoV-2 RNA (VASILIY) (NEGATIVE) 12/13/19 12/13/19 12/13/19 Range/Units 17:09 17:09 17:09 WBC 7.20 (4.0-11.0) K/uL RBC 3.33 L (4.50-5.90) M/uL Hgb 9.7 L (13.0-17.0) g/dL Hct 33.4 L (38.0-50.0) % MCV 100.3 H (80.0-98.0) fL MCH 29.1 (27.0-32.0) pg MCHC 29.0 L (31.0-37.0) g/dL RDW Std Deviation 69.7 H (28.0-62.0) fl RDW Coeff of Nii 19 H (11.0-15.0) % Plt Count 261 (150-400) K/uL MPV 9.70 (7.40-12.00) fL Neut % (Auto) 80.0 (48.0-80.0) % Lymph % (Auto) 11.1 L (16.0-40.0) % [place] % (Auto) 6.3 (0.0-15.0) % Eos % (Auto) 2.2 (0.0-7.0) % Baso % (Auto) 0.4 (0.0-1.5) % Neut # (Auto) 5.8 H (1.4-5.7) K/uL Lymph # (Auto) 0.8 (0.6-2.4) K/uL [place] # (Auto) 0.5 (0.0-0.8) K/uL Eos # (Auto) 0.2 (0.0-0.7) K/uL Baso # (Auto) 0.0 (0.0-0.1) K/uL Nucleated RBC % 0.0 /100WBC Nucleated RBCs # 0 K/uL INR VBG pH (7.31-7.41) VBG pCO2 (35-45) mmHG VBG pO2 (30-40) mmHG VBG HCO3 (22-30) mEq/L VBG Total CO2 (41-51) mmol/L VBG Base Excess (-3.0-3.0) Lactate (0.20-2.00) mmol/L Sodium 136 (136-148) mmol/L Potassium 5.8 H (3.5-5.1) mmol/L Chloride 97 L (98-107) mmol/L Carbon Dioxide 30.3 (21.0-32.0) mmol/L BUN 43 H (7.0-18.0) mg/dL Creatinine 5.4 H (0.8-1.3) mg/dL Est Cr Clr Drug Dosing 14.18 mL/min Estimated GFR (MDRD) 10.8 ml/min Glucose 111 H (74-106) mg/dL Calcium 9.1 (8.5-10.1) mg/dL Total Bilirubin 0.6 (0.2-1.0) mg/dL AST 21 (15-37) IU/L ALT 22 (14-63) IU/L Alkaline Phosphatase 190 H (46-116) U/L Troponin I < 0.050 (0.000-0.056) ng/mL B-Natriuretic Peptide 4618 H (<100) PG/ML Total Protein 7.4 (6.4-8.2) g/dL Albumin 2.8 L (3.4-5.0) g/dL Globulin 4.6 H (2.6-4.0) g/dL Albumin/Globulin Ratio 0.6 L (0.9-1.6) SARS-CoV-2 RNA (VASILIY) (NEGATIVE) 12/13/19 Range/Units 18:50 WBC (4.0-11.0) K/uL RBC (4.50-5.90) M/uL Hgb (13.0-17.0) g/dL Hct (38.0-50.0) % MCV (80.0-98.0) fL MCH (27.0-32.0) pg MCHC (31.0-37.0) g/dL RDW Std Deviation (28.0-62.0) fl RDW Coeff of Nii (11.0-15.0) % Plt Count (150-400) K/uL MPV (7.40-12.00) fL Neut % (Auto) (48.0-80.0) % Lymph % (Auto) (16.0-40.0) % [place] % (Auto) (0.0-15.0) % Eos % (Auto) (0.0-7.0) % Baso % (Auto) (0.0-1.5) % Neut # (Auto) (1.4-5.7) K/uL Lymph # (Auto) (0.6-2.4) K/uL [place] # (Auto) (0.0-0.8) K/uL Eos # (Auto) (0.0-0.7) K/uL Baso # (Auto) (0.0-0.1) K/uL Nucleated RBC % /100WBC Nucleated RBCs # K/uL INR VBG pH (7.31-7.41) VBG pCO2 (35-45) mmHG VBG pO2 (30-40) mmHG VBG HCO3 (22-30) mEq/L VBG Total CO2 (41-51) mmol/L VBG Base Excess (-3.0-3.0) Lactate (0.20-2.00) mmol/L Sodium (136-148) mmol/L Potassium (3.5-5.1) mmol/L Chloride (98-107) mmol/L Carbon Dioxide (21.0-32.0) mmol/L BUN (7.0-18.0) mg/dL Creatinine (0.8-1.3) mg/dL Est Cr Clr Drug Dosing mL/min Estimated GFR (MDRD) ml/min Glucose (74-106) mg/dL Calcium (8.5-10.1) mg/dL Total Bilirubin (0.2-1.0) mg/dL AST (15-37) IU/L ALT (14-63) IU/L Alkaline Phosphatase (46-116) U/L Troponin I (0.000-0.056) ng/mL B-Natriuretic Peptide (<100) PG/ML Total Protein (6.4-8.2) g/dL Albumin (3.4-5.0) g/dL Globulin (2.6-4.0) g/dL Albumin/Globulin Ratio (0.9-1.6) SARS-CoV-2 RNA (VASILIY) NEGATIVE (NEGATIVE) Result Diagrams: 12/13/19 17:09 12/13/19 17:09 Sepsis Event Note - Evaluation Sepsis Screening Result: No Definite Risk - Focused Exam Vital Signs: Vital Signs Temp Pulse Resp BP Pulse Ox 10/13/20 21:00 36.4 C 73 20 103/67 96 12/13/19 20:20 60 97/55 L 93 L 12/13/19 19:51 57 L 123/78 90 L 12/13/19 16:47 36.6 C 61 20 98/49 L 92 L Problem List Initiated/Reviewed/Updated: Yes Orders Last 24hrs: Active Orders 24 hr Category Date Time Status Admission Status [Patient Status] [ADT] Stat ADT 12/13/19 18:48 Active Cardiac Monitoring [RC] . DIRECTED Care 12/13/19 16:55 Active EKG Documentation Completion [RC] STAT Care 12/13/19 16:55 Active Pulse Oximetry [RC] ASDIRECTED Care 12/13/19 16:55 Active RT Aerosol Therapy [RC] ASDIRECTED Care 12/13/19 21:47 Ordered Telemetry Monitoring [Cardiac Monitoring] [RC] . Care 12/13/19 20:45 Active DIRECTED Nothing Per Oral Diet [DIET] Diet 12/13/19 Breakfast Active Renal Dialysis Diet [DIET] Diet 12/14/19 Breakfast Active TROPONIN I [CHEM] Q6H Lab 12/13/19 23:00 Ordered TROPONIN I [CHEM] Q6H Lab 12/14/19 05:00 Ordered Albuterol [Proventil Neb Soln] Med 12/13/19 21:46 Ordered 2.5 mg INH Q6H PRN Metoprolol Tartrate [Lopressor] Med 12/14/19 09:00 Ordered 25 mg PO BID Midodrine Med 12/13/19 22:00 Ordered 2.5 mg PO ASDIRECTED Pantoprazole Sodium [Protonix] Med 12/14/19 07:30 Ordered 40 mg PO ACBREAKFAST Rosuvastatin [Crestor] Med 12/14/19 21:00 Ordered 20 mg PO BEDTIME Sodium Chloride 0.9% [Saline Flush] Med 12/13/19 16:55 Active 10 ml FLUSH ASDIRECTED PRN Sodium Chloride 0.9% [Saline Flush] Med 12/13/19 16:55 Active 2.5 ml FLUSH ASDIRECTED PRN Warfarin Sliding Scale [Coumadin Sliding Scale] Med 12/14/19 09:00 Ordered 1 mg PO DAILY Saline Lock Insert [OM.PC] Stat Oth 10/13/20 16:55 Ordered Medication Orders Albuterol (Proventil Neb Soln) 2.5 mg INH Q6H PRN PRN Reason: Wheezing Metoprolol Tartrate (Lopressor) 25 mg PO BID WALTER Midodrine (Midodrine) 2.5 mg PO ASDIRECTED WALTER Non-Formulary Medication (Pantoprazole Sodium [Protonix]) 40 mg PO ACBREAKFAST WALTER Rosuvastatin Calcium (Crestor) 20 mg PO BEDTIME WALTER Sodium Chloride (Saline Flush) 10 ml FLUSH ASDIRECTED PRN PRN Reason: Keep Vein Open Last Admin: 12/13/19 17:58 Dose: 10 ml Documented by: HEATHER Sodium Chloride (Saline Flush) 2.5 ml FLUSH ASDIRECTED PRN PRN Reason: Keep Vein Open Last Admin: 12/13/19 17:58 Dose: 2.5 ml Documented by: HEATHER Warfarin Sodium (Coumadin Sliding Scale) each PO DAILY WALTER Assessment/Plan Comment:: 64-yo male with a pmh of CAD, CHF, ESRD on MWF HD, a.fib, COPD who presents with shortness of breath. ED physician requested observations to trend cardiac enzymes. Dr Whitman was called in ED and will see patient in morning. I suspect patient may be fluid overloaded and may benefit from dialysis. We do not have the ability to dialyze patients in the hospital and I can not keep the patient longer than tonight as he will need to be discharged to get dialysis tomorrow. I offered to transfer the patient but patient would prefer to get dialyzed in [place] tomorrow. Patient was monitor overnight with no events on telemetry. Dr. Whitman came and looked at EKG and did not think there was any acute changes. He ruled out for acute coronary syndrome. Patient was instructed to limit fluid and salt intake. He was discharged home and will get dialysis today.
[2019-12-14 05:05] VITALS: BP 128/74; PULSE 97
[2019-12-14] MEDS ORDERED: Pantoprazole 40 MG Tab.CR PO SCH (07:30)
[2019-12-14] MEDS ORDERED: Warfarin 2 MG Tab PO SCH (09:00)
[2019-12-14] MEDS ORDERED: Metoprolol Tartrate 25 MG Tab PO SCH (09:00)
[2019-12-14] MEDS ORDERED: Warfarin 2 MG Tab ONE (11:38)
[2019-12-14] MEDS ORDERED: Warfarin Sliding Scale PO SCH (14:00)
[2019-12-14] MEDS ORDERED: Midodrine 5 MG Tab PO SCH (14:00)
[2019-12-14] MEDS ORDERED: Rosuvastatin 10 MG Tab PO SCH (21:00)
--- NOTE | 2019-12-15 13:21 | CONS ---
DATE OF CONSULTATION: 12/14/2019 DATE OF : 1955 PRIMARY CARE PHYSICIAN: Braden Alberts MD REASON FOR CONSULTATION: Shortness of breath. HISTORY OF PRESENT ILLNESS: This is a 64-year-old male who has a history of permanent dialysis, end-stage renal disease Thursday, , and Thursday; chronic persistent atrial fibrillation, status post atrial fibrillation ablation, on Coumadin; noncompliance; hypertension; and history of asthma. I saw him last time back in August 2019 for abnormal stress test. At that time, it was showing severe reversible defect in the mid to distal anteroseptal and inferoseptal area. 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 I was contacted to see him because of ER visit for shortness of breath. We also have the record of what was going on after having the abnormal stress test. Apparently, he underwent CABG in October 2019. 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 Apparently, he does have left main stent as well as LAD disease. I only got the discharge summary, but I do not have the coronary angiogram report. 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 He does have the rotational arthrectomy and PCI to the mid left main and also rotational arthrectomy and PCI with Impella support. It was noted it was extended to diagonal branch as well as had a stent placed in the circumflex. Since the procedure, he started having shortness of breath. It has become more progressively worse, but he denied chest pain. He has some leg swelling. No heart racing. No passing out. PAST MEDICAL HISTORY: Including chronic persistent atrial fibrillation, status post ablation, rate controlled on Coumadin; noncompliant; hypertension; dyslipidemia; end-stage renal disease, status post on dialysis dependent; and history of asthma. CURRENT MEDICATIONS: Includin. Amiodarone 200 mg once a day. 2. Aspirin 81 mg once a day. 3. Plavix 75 mg once a day. 4. Coumadin. 5. Crestor 20 mg once a day. ALLERGIES: Allergic to fish, nuts, and tree nuts. SOCIAL HISTORY: Former smoker. No drug use. No alcohol consumption. FAMILY HISTORY: No pertinent family history. REVIEW OF SYSTEMS: Except indicated in the HPI, otherwise has been negative. PHYSICAL EXAMINATION: VITAL SIGNS: Initial blood pressure 96/49, improving to 112/58; heart rate of 54 to 90s; 92 on room air; respirations 18; and O2 saturation is 97. HEENT: Mouth pale. No jaundice. JVD mildly positive. LUNGS: Minimal crackles bilaterally. HEART: Totally irregular. No murmur. ABDOMEN: Soft and nontender. Bowel sounds are present. No hepatosplenomegaly. EXTREMITIES: Legs: Trace edema, both legs. INVESTIGATIONS: CBC showed WBC 7, hematocrit of 33, hemoglobin of 9, and platelets of 261. INR 1.7. Sodium 138, potassium 5.8, chloride 97, bicarbonate 30, BUN 43, and creatinine 5.4. Troponin was negative x3. BNP 4600. COVID is negative. EKG on 12/13/2019 shows atrial fibrillation, heart rate of 60, QRS 106, QTc 447. Q-waves in lead III, aVF, V1, V2, which is unchanged from previous EKG. PCI, 11/15/2019: 1. Severe mid left main 50%, status post rotational atherectomy and PCI with KASSI PCI. 2. Severe proximal circumflex 90%, status post rotational arthrectomy and PCI with KASSI PCI. 3. Proximal LAD 70% calcified stenosis with ostial diagonal 80% stenosis, status post lesion modification with rotational arthrectomy and PCI, KASSI PCI. 4. Mid LAD after diagonal 100% chronic total occlusion. There is distal reconstitute from the [id number] diagonal collateral and a [id number] collateral. 5. LVEDP 14. 6. Unclear about the RCA. ASSESSMENT AND PLAN: This is a 64-year-old male who had severe triple-vessel disease, hemodialysis dependent, noncompliant, hypertension, and dyslipidemia. So far, acute coronary syndrome has been ruled out. An EKG was unchanged. Possibly from fluid overloaded. He still has persistent left pleural effusion, which I feel is improving from a previous chest x-ray. He would need dialysis. I spoke with the dialysis department. It seems that they have been trying to remove the fluid to be a negative balance at least, like 3 to 4 kg every time lately. However, the patient seemed to be noncompliant to dietary. He always has high phosphorus all the time partly from fluid overloaded, possibly due to dietary noncompliance as well. I reemphasized regarding dietary compliance for the kidney diet. I will obtain the cardiac catheterization to review. He will remain on the triple anticoagulation therapy for now. I will contact Dr. Olmstead regarding how long and the duration of those medications. He also was noted to have the bicuspid aortic valve. I will probably retrieve the images from [place] to review as well. I think the patient is safe to go home. He should have dialysis today for the negative fluid balance. GURPREET / JESUS /[id number]
--- NOTE | 2019-12-19 10:38 | ECHO ---
EXAM DATE: 12/13/19 PATIENT'S AGE: 64 The ECHO report has been scanned into [employer] and can be seen in this patient's EMR (Electronic Medical Record) under the REPORTS section. The report has also been scanned into PACS. AMRITA
== END 2019-12-14 12:15 | disposition home or self-care (01) ==
LOC: MW.ED 16:37 → MW.MS 18:57
PROVIDERS: ADMIT Internal Medicine; ATTEND Internal Medicine
DX: R06.02 Shortness of breath (principal); I25.10 Atherosclerotic heart disease of native coronary artery without angina pectoris; I50.9 Heart failure, unspecified; N18.6 End stage renal disease; I48.91 Unspecified atrial fibrillation; I13.2 Hypertensive heart and chronic kidney disease with heart failure and with stage 5 chronic kidney disease, or end stage renal disease; J44.1 Chronic obstructive pulmonary disease with (acute) exacerbation; F41.9 Anxiety disorder, unspecified; Z99.2 Dependence on renal dialysis; Z79.01 Long term (current) use of anticoagulants; Z91.013 Allergy to seafood; Z91.018 Allergy to other foods; Z79.899 Other long term (current) drug therapy; Z98.890 Other specified postprocedural states; Z20.828 Contact with and (suspected) exposure to other viral communicable diseases
CPT/HCPCS: 36415; 71046; 80053; 82803; 83605; 83880; 84484; 85025; 85610; 93005; 93306; 99285; A9270; G0378; U0002

== ENCOUNTER 2020-01-14 18:03 | Emergency (ER) | payer MEDICARE, BC ==
[2020-01-14] MEDS ORDERED: Sodium Chloride 0.9% 10 ML Syringe FLUSH PRN (18:32)
[2020-01-14] MEDS ORDERED: Sodium Chloride 0.9% 2.5 ML Syringe FLUSH PRN (18:32)
[2020-01-14] MEDS ORDERED: Lactated Ringers 1,000 ML IV SCH (18:45)
[2020-01-14 18:55] VITALS: BP 89/57; PULSE 61
--- NOTE | 2020-01-14 19:08 | CR ---
INDICATION: Dyspnea. TECHNIQUE: AP portable upright chest. COMPARISON: December 13, 2019. FINDINGS: Sternotomy. Cardiomegaly. Blunting of left costophrenic angle likely by a small amount of pleural fluid or pleural thickening similar to the prior study. There is likely some fluid and/or pleural thickening involving the left major fissure similar to the prior study. The pulmonary venous vascularity is minimally increased but unchanged. Old fracture deformity distal 3rd left clavicle. IMPRESSION: Stable portable chest x-ray. Dictated by Krystian Paniagua MD @ Jan 14 2020 7:05PM Signed by Dr. Krystian Paniagua @ Jan 14 2020 7:06PM
[2020-01-14 19:13] LABS: BLOOD UREA NITROGEN,BUN 34 mg/dL (7.0-18.0); CARBON DIOXIDE,CO2 26.5 mmol/L (21.0-32.0); CHLORIDE,CL 95 mmol/L (98-107); GLUCOSE RANDOM 91 mg/dL (74-106); SODIUM,NA 131 mmol/L (136-148)
[2020-01-14 19:20] LABS: POTASSIUM,K 7.7 mmol/L (3.5-5.1)
--- NOTE | 2020-01-14 19:20 | EDM.PDOC ---
ED HPI GENERAL MEDICAL PROBLEM - General Chief Complaint: Respiratory Problem Stated Complaint: SOB Time Seen by Provider: 01/14/20 18:50 - History of Present Illness INITIAL COMMENTS - FREE TEXT/NARRATIVE: History of present illness: [] This is a pleasant 64-year-old male who has a history of renal failure on dialysis Thursday and Thursday. This is Thursday. Lately over the past few weeks he has been extremely fatigued and weak and even short of breath after dialysis. The dialysis nurse had said since he gained weight they were can increase the amount that they take off each time but he is unclear whether they did that the last time. His blood pressure has been as low as high 80s to 90s after dialysis recently and they put him on a medicine to raise his blood pressure on the days of dialysis. He is not sure what that medicine has. I will review the chart to try to see if I can tell. Today he was so fatigued and short of breath specially in a supine position and not necessarily on exertion that he called his family. He lives alone. Brought him to the hospital where he was noted to have blood pressure of about 80 systolic and a heart rate in the high 30s. His rhythm difficult to determine. There was possibility of a wide broad P wave first-degree block but there was some variation in the baseline it could have been a very wide base P wave 2-1 with a second-degree heart block. Review of systems: As per history of present illness and below otherwise all systems reviewed and negative. Past medical history: As per history of present illness and as reviewed below otherwise noncontributory. Surgical history: As per history of present illness and as reviewed below otherwise noncontributory. Social history: No reported history of drug or alcohol abuse. Family history: As per history of present illness and as reviewed below otherwise noncontributory. Physical exam: Constitutional - well developed, well-nourished and in no acute distress HEENT - normocephalic, no evidence of trauma - external nose and mouth normal - no mass in neck and no JVD - mucosae moist EYES - full EOM, PERRL, no icterus - no evidence of inflammation, injection, or drainage Respiratory - no respiratory distress, equal bilateral expansion, lungs clear to auscultation and no abnormal lung sounds Cardiovascular -slow but regular Rhythm with S1 and S2 appreciated and no murmur, gallop or rub. GI - abdomen soft without distension or organomegaly - normal bowel sounds - no guard or rebound Musculoskeletal no gross deformity of long bones or joints - no tenderness, swelling or edema Neurologic - Alert and oriented times four - CN II-XII grossly intact - motor sensory and coordination symmetrically normal Psychiatric - appropriate mood and affect with normal thought content Hematologic - No petechiae or purpura - mucosa appropriate color and sclera not pale - normal nail bed color and refill Integument - no rash or evidence of trauma - normal turgor Diagnostics: [] Therapeutics: [] Impression: [] Plan: [] Definitive disposition and diagnosis as appropriate pending reevaluation and review of above. - Related Data Allergies Allergy/AdvReac Type Severity Reaction Status Date / Time Fish Containing Products Allergy Swelling Verified 12/13/19 21:03 walnut Allergy Other Verified 12/13/19 21:03 Home Meds: Home Meds Pantoprazole Sodium [Protonix] 40 mg PO ACBREAKFAST 11/05/18 [History] Albuterol [Ventolin HFA] 2 puff INH Q6H PRN 12/06/18 [History] Warfarin Sodium [Coumadin] 1 mg PO DAILY 12/06/18 [History] Albuterol [Proventil Neb Soln] 2.5 mg INH Q6H PRN 10/28/19 [History] B Complex W-C No.20/Folic Acid [Virt-Caps Softgel] 1 mg PO PCBREAKFAST 10/28/19 [History] Metoprolol Tartrate [Lopressor] 25 mg PO BID 10/28/19 [History] Midodrine 2.5 mg PO .ON DIALYSIS DAYS 10/28/19 [History] Rosuvastatin [Crestor] 20 mg PO BEDTIME 10/28/19 [History] Sevelamer Carbonate [Renvela] 2,400 mg PO TIDMEALS PRN 10/28/19 [History] Amiodarone HCl 200 mg PO DAILY 12/14/19 [History] Clopidogrel [Plavix] 75 mg PO DAILY 12/14/19 [History] Diltiazem HCl [Diltiazem 24Hr ER] 360 mg PO DAILY 12/14/19 [History] Past Medical History HEENT History: Reports: None Cardiovascular History: Reports: Afib, Hypertension Respiratory History: Reports: Asthma Other Respiratory History: pleural effusion Gastrointestinal History: Reports: None Genitourinary History: Reports: Renal Disease Other Genitourinary History: on hemodialysis - tstaes he's on transplant list Hematologic History: Reports: Blood Transfusion(s) - Infectious Disease History Infectious Disease History: Reports: Chicken Pox, Measles - Past Surgical History HEENT Surgical History: Reports: Tonsillectomy Cardiovascular Surgical History: Reports: Carotid Stents, Coronary Artery Bypass Other Cardiovascular Surgeries/Procedures: recent heart sx in [place] Respiratory Surgical History: Reports: Thoracentesis GI Surgical History: Reports: Other (See Below) Other GI Surgeries/Procedures: abdominal sx Male Surgical History: Reports: None Social & Family History - Family History Family Medical History: No Pertinent Family History - Caffeine Use Caffeine Use: Reports: Coffee ED ROS GENERAL - Review of Systems Review Of Systems: Comprehensive ROS is negative, except as noted in HPI. ED EXAM, GENERAL - Physical Exam Exam: See Below Free Text/Narrative:: My physical exam as in the HPI #1 Interpretation EKG Interpretation Comments: EKG done at 6:15 PM on 01/14/2020 and final interpretation entered at 8:05 PM. This is a bradycardia with a heart rate of 34. There is a possibility of a P wave or possibly 2 P waves per QRS. The P wave is so flattened so that its not certain that this is not a complete heart block. The CA interval is measured by the computer at 269. QT is 412. [place] is -84. There is a right bundle branch block pattern. There with the prior EKG in November the patient was in atrial flutter at that time but the heart rate was improved. The QRS duration is increased raising it to the point of a right bundle branch block but the QRS configuration is no different. There is no obvious ST or T abnormality suggest an acute NM. Impression this is an arrhythmia that may be related to hyperkalemia. There is no obvious injury Course - Vital Signs Text/Narrative:: 2117-hour summary. The patient dropped his pressure again and his pulse again. His potassium was 6.5 after treatment. I repeated dextrose insulin and start an albuterol treatment. The case was discussed with Dr. Clifton at [facility]. He was accepted and transferred by EMS. The patient's heart rate responded better than his blood pressure with dopamine. We increased it before he was transferred out. Last Recorded V/S: Last Vital Signs Temp 35.7 C L 01/14/20 18:07 Pulse 61 01/14/20 18:54 Resp 24 H 01/14/20 18:54 BP 89/57 L 01/14/20 18:54 Pulse Ox 100 01/14/20 18:54 - Orders/Labs/Meds Orders: Active Orders 24 hr Category Date Time Status Cardiac Monitoring [RC] . DIRECTED Care 01/14/20 18:32 Active EKG 12 Lead [EKG Documentation Completion] [RC] STAT Care 01/14/20 20:08 Active EKG Documentation Completion [RC] STAT Care 01/14/20 18:32 Active Pulse Oximetry [RC] ASDIRECTED Care 01/14/20 18:32 Active RT Aerosol Therapy [RC] ASDIRECTED Care 01/14/20 19:25 Active Nothing Per Oral Diet [DIET] Diet 01/14/20 Dinner Active CORONAVIRUS COVID-19 PCR PHL Stat Lab 01/14/20 18:50 Received DOPamine/Dextrose 5%-Water [DOPamine in D5W 400 MG/250 Med 01/14/20 20:45 Active ML] 400 mg in 250 ml IV ASDIRECTED Dextrose 50% in Water Med 01/14/20 19:25 Active 50 ml IV ASDIRECTED PRN Glucagon,Human Recombinant [GlucaGen] Med 01/14/20 19:25 Active 1 mg IM ASDIRECTED PRN Glucagon,Human Recombinant [GlucaGen] Med 01/14/20 21:14 Active 1 mg IM ASDIRECTED PRN Lactated Ringers [Ringers, Lactated] 1,000 ml Med 01/14/20 18:45 Active IV .BOLUS Sodium Chloride 0.9% [Saline Flush] Med 01/14/20 18:32 Active 10 ml FLUSH ASDIRECTED PRN Sodium Chloride 0.9% [Saline Flush] Med 01/14/20 18:32 Active 2.5 ml FLUSH ASDIRECTED PRN External Jugular Insertion [Peripheral IV Insertion Oth 01/14/20 18:46 Ordered Adult] [OM.PC] Stat Saline Lock Insert [OM.PC] Stat Oth 01/14/20 18:32 Ordered Medication Orders Dextrose/Water (Dextrose 50% In Water) 50 ml IV ASDIRECTED PRN PRN Reason: Hypoglycemia Last Admin: 01/14/20 19:35 Dose: 50 ml Documented by: [id number] Glucagon (Glucagen) 1 mg IM ASDIRECTED PRN PRN Reason: Hypoglycemia Glucagon (Glucagen) 1 mg IM ASDIRECTED PRN PRN Reason: Hypoglycemia Lactated Ringer's (Ringers, Lactated) 1,000 mls @ 1,000 mls/hr IV .BOLUS WALTER Last Admin: 01/14/20 18:47 Dose: 1,000 mls/hr Documented by: [id number] Dopamine HCl/Dextrose (Dopamine In D5w 400 Mg/250 Ml) 400 mg in 250 mls @ 13.163 mls/hr IV ASDIRECTED WALTER; Protocol Last Admin: 01/14/20 20:38 Dose: 5 mcg/kg/min, 13.163 mls/hr Documented by: [id number] Sodium Chloride (Saline Flush) 10 ml FLUSH ASDIRECTED PRN PRN Reason: Keep Vein Open Last Admin: 01/14/20 18:48 Dose: 10 ml Documented by: [id number] Sodium Chloride (Saline Flush) 2.5 ml FLUSH ASDIRECTED PRN PRN Reason: Keep Vein Open Last Admin: 01/14/20 18:47 Dose: 2.5 ml Documented by: [id number] Labs: Laboratory Tests 01/14/20 01/14/20 01/14/20 Range/Units 18:15 18:15 18:15 WBC 10.04 (4.0-11.0) K/uL RBC 3.86 L (4.50-5.90) M/uL Hgb 11.1 L (13.0-17.0) g/dL Hct 38.1 (38.0-50.0) % MCV 98.7 H (80.0-98.0) fL MCH 28.8 (27.0-32.0) pg MCHC 29.1 L (31.0-37.0) g/dL RDW Std Deviation 69.6 H (28.0-62.0) fl RDW Coeff of Nii 21 H (11.0-15.0) % Plt Count 418 H (150-400) K/uL MPV 9.70 (7.40-12.00) fL Neut % (Auto) 75.7 (48.0-80.0) % Lymph % (Auto) 11.5 L (16.0-40.0) % Yancey % (Auto) 10.4 (0.0-15.0) % Eos % (Auto) 1.8 (0.0-7.0) % Baso % (Auto) 0.6 (0.0-1.5) % Neut # (Auto) 7.6 H (1.4-5.7) K/uL Lymph # (Auto) 1.2 (0.6-2.4) K/uL Yancey # (Auto) 1.0 H (0.0-0.8) K/uL Eos # (Auto) 0.2 (0.0-0.7) K/uL Baso # (Auto) 0.1 (0.0-0.1) K/uL Nucleated RBC % 0.6 /100WBC Nucleated RBCs # 0 K/uL INR 1.92 Lactate 2.6 H* (0.20-2.00) mmol/L Sodium (136-148) mmol/L Potassium (3.5-5.1) mmol/L Chloride (98-107) mmol/L Carbon Dioxide (21.0-32.0) mmol/L BUN (7.0-18.0) mg/dL Creatinine (0.8-1.3) mg/dL Est Cr Clr Drug Dosing mL/min Estimated GFR (MDRD) ml/min Glucose (74-106) mg/dL Calcium (8.5-10.1) mg/dL Phosphorus (2.6-4.7) mg/dL Magnesium (1.8-2.4) mg/dL Total Bilirubin (0.2-1.0) mg/dL AST (15-37) IU/L ALT (14-63) IU/L Alkaline Phosphatase (46-116) U/L Troponin I (0.000-0.056) ng/mL B-Natriuretic Peptide (<100) PG/ML Total Protein (6.4-8.2) g/dL Albumin (3.4-5.0) g/dL Globulin (2.6-4.0) g/dL Albumin/Globulin Ratio (0.9-1.6) TSH 3rd Generation (0.36-3.74) uIU/mL SARS CoV-2 RNA Rapid VASILIY (NEGATIVE) 01/14/20 01/14/20 01/14/20 Range/Units 18:15 18:15 18:50 WBC (4.0-11.0) K/uL RBC (4.50-5.90) M/uL Hgb (13.0-17.0) g/dL Hct (38.0-50.0) % MCV (80.0-98.0) fL MCH (27.0-32.0) pg MCHC (31.0-37.0) g/dL RDW Std Deviation (28.0-62.0) fl RDW Coeff of Nii (11.0-15.0) % Plt Count (150-400) K/uL MPV (7.40-12.00) fL Neut % (Auto) (48.0-80.0) % Lymph % (Auto) (16.0-40.0) % Yancey % (Auto) (0.0-15.0) % Eos % (Auto) (0.0-7.0) % Baso % (Auto) (0.0-1.5) % Neut # (Auto) (1.4-5.7) K/uL Lymph # (Auto) (0.6-2.4) K/uL Yancey # (Auto) (0.0-0.8) K/uL Eos # (Auto) (0.0-0.7) K/uL Baso # (Auto) (0.0-0.1) K/uL Nucleated RBC % /100WBC Nucleated RBCs # K/uL INR Lactate (0.20-2.00) mmol/L Sodium 131 L (136-148) mmol/L Potassium 7.7 H* (3.5-5.1) mmol/L Chloride 95 L (98-107) mmol/L Carbon Dioxide 26.5 (21.0-32.0) mmol/L BUN 34 H (7.0-18.0) mg/dL Creatinine 5.6 H (0.8-1.3) mg/dL Est Cr Clr Drug Dosing 13.58 mL/min Estimated GFR (MDRD) 10.4 ml/min Glucose 91 (74-106) mg/dL Calcium 9.7 (8.5-10.1) mg/dL Phosphorus 7.6 H (2.6-4.7) mg/dL Magnesium 2.2 (1.8-2.4) mg/dL Total Bilirubin 0.6 (0.2-1.0) mg/dL AST 38 H (15-37) IU/L ALT 24 (14-63) IU/L Alkaline Phosphatase 208 H (46-116) U/L Troponin I < 0.050 (0.000-0.056) ng/mL B-Natriuretic Peptide 3799 H (<100) PG/ML Total Protein 8.3 H (6.4-8.2) g/dL Albumin 2.9 L (3.4-5.0) g/dL Globulin 5.4 H (2.6-4.0) g/dL Albumin/Globulin Ratio 0.5 L (0.9-1.6) TSH 3rd Generation 3.04 (0.36-3.74) uIU/mL SARS CoV-2 RNA Rapid VASILIY NEGATIVE (NEGATIVE) 01/14/20 Range/Units 20:30 WBC (4.0-11.0) K/uL RBC (4.50-5.90) M/uL Hgb (13.0-17.0) g/dL Hct (38.0-50.0) % MCV (80.0-98.0) fL MCH (27.0-32.0) pg MCHC (31.0-37.0) g/dL RDW Std Deviation (28.0-62.0) fl RDW Coeff of Nii (11.0-15.0) % Plt Count (150-400) K/uL MPV (7.40-12.00) fL Neut % (Auto) (48.0-80.0) % Lymph % (Auto) (16.0-40.0) % Yancey % (Auto) (0.0-15.0) % Eos % (Auto) (0.0-7.0) % Baso % (Auto) (0.0-1.5) % Neut # (Auto) (1.4-5.7) K/uL Lymph # (Auto) (0.6-2.4) K/uL Yancey # (Auto) (0.0-0.8) K/uL Eos # (Auto) (0.0-0.7) K/uL Baso # (Auto) (0.0-0.1) K/uL Nucleated RBC % /100WBC Nucleated RBCs # K/uL INR Lactate (0.20-2.00) mmol/L Sodium (136-148) mmol/L Potassium 6.5 H (3.5-5.1) mmol/L Chloride (98-107) mmol/L Carbon Dioxide (21.0-32.0) mmol/L BUN (7.0-18.0) mg/dL Creatinine (0.8-1.3) mg/dL Est Cr Clr Drug Dosing mL/min Estimated GFR (MDRD) ml/min Glucose (74-106) mg/dL Calcium (8.5-10.1) mg/dL Phosphorus (2.6-4.7) mg/dL Magnesium (1.8-2.4) mg/dL Total Bilirubin (0.2-1.0) mg/dL AST (15-37) IU/L ALT (14-63) IU/L Alkaline Phosphatase (46-116) U/L Troponin I (0.000-0.056) ng/mL B-Natriuretic Peptide (<100) PG/ML Total Protein (6.4-8.2) g/dL Albumin (3.4-5.0) g/dL Globulin (2.6-4.0) g/dL Albumin/Globulin Ratio (0.9-1.6) TSH 3rd Generation (0.36-3.74) uIU/mL SARS CoV-2 RNA Rapid VASILIY (NEGATIVE) Meds: Medications Generic Name Dose Route Start Last Admin Trade Name Freq PRN Reason Stop Dose Admin Dextrose/Water 50 ml 01/14/20 19:25 01/14/20 19:35 Dextrose 50% In Water IV 50 ml ASDIRECTED PRN Administration Hypoglycemia Glucagon 1 mg 01/14/20 19:25 Glucagen IM ASDIRECTED PRN Hypoglycemia Glucagon 1 mg 01/14/20 21:14 Glucagen IM ASDIRECTED PRN Hypoglycemia Lactated Ringer's 1,000 mls @ 1,000 mls/hr 01/14/20 18:45 01/14/20 18:47 Ringers, Lactated IV 1,000 mls/hr .BOLUS WALTER Administration Dopamine HCl/Dextrose 400 mg in 250 mls @ 13.163 mls/hr 01/14/20 20:45 01/14/20 20:38 Dopamine In D5w 400 Mg/250 Ml IV 5 mcg/kg/min ASDIRECTED WALTER 13.163 mls/hr Administration Protocol 5 MCG/KG/MIN Sodium Chloride 10 ml 01/14/20 18:32 01/14/20 18:48 Saline Flush FLUSH 10 ml ASDIRECTED PRN Administration Keep Vein Open Sodium Chloride 2.5 ml 01/14/20 18:32 01/14/20 18:47 Saline Flush FLUSH 2.5 ml ASDIRECTED PRN Administration Keep Vein Open Discontinued Medications Generic Name Dose Route Start Last Admin Trade Name Freq PRN Reason Stop Dose Admin Albuterol 2.5 mg 01/14/20 19:25 01/14/20 19:35 Proventil Neb Soln NEB 01/14/20 19:26 2.5 mg ONETIME ONE Administration Albuterol 2.5 mg 01/14/20 21:14 Proventil Neb Soln NEB 01/14/20 21:15 ONETIME ONE Calcium Gluconate 1 gm 01/14/20 19:24 01/14/20 19:36 Calcium Gluconate IVPUSH 01/14/20 19:25 1 gm ONETIME ONE Administration Dextrose/Water 50 ml 01/14/20 19:25 01/14/20 19:34 Dextrose 50% In Water IVPUSH 01/14/20 19:26 50 ml ONETIME ONE Administration Dextrose/Water 50 ml 01/14/20 21:16 Dextrose 50% In Water IVPUSH 01/14/20 21:17 ONETIME ONE Dopamine HCl/Dextrose 400 mg in 250 mls @ 144.788 mls/hr 01/14/20 20:15 Dopamine In D5w 400 Mg/250 Ml IV ASDIRECTED WALTER Protocol 55 MCG/KG/MIN Insulin Human Regular 10 unit 01/14/20 19:25 01/14/20 19:39 Novolin R IVPUSH 01/14/20 19:26 10 units ONETIME ONE Administration Protocol Insulin Human Regular 5 unit 01/14/20 21:14 Novolin R SUBCUT 01/14/20 21:15 ONETIME ONE Protocol Sodium Bicarbonate 50 meq 01/14/20 19:27 01/14/20 19:33 Sodium Bicarbonate 8.4% IVPUSH 01/14/20 19:28 50 meq ONETIME ONE Administration Departure - Departure Time of Disposition: 21:18 Disposition: DC/Tfer to Acute Hospital 02 Condition: Fair Clinical Impression: Bradycardia, Renal failure, Hyperkalemia Hypotension Qualifiers: Hypotension type: unspecified hypotension type Qualified Code(s): I95.9 - Hypotension, unspecified - Discharge Information Referrals: PCP,None [Primary Care Provider] - Forms: ED Department Discharge Critical Care Note - Critical Care Note Total Time (mins): 42 Comments: Has been a life-threatening hypokalemia as well as bradycardia arrhythmia and hypotension. Sepsis Event Note (ED) - Evaluation Sepsis Screening Result: No Definite Risk - Focused Exam Vital Signs: Vital Signs Temp Pulse Resp BP Pulse Ox 01/14/20 18:54 61 24 H 89/57 L 100 01/14/20 18:35 78/40 L 01/14/20 18:07 35.7 C L 48 L 22 H 82/51 L 94 L - My Orders Last 24 Hours: My Active Orders 01/14/20 19:25 RT Aerosol Therapy [RC] ASDIRECTED Dextrose 50% in Water 50 ml IV ASDIRECTED PRN Glucagon,Human Recombinant [GlucaGen] 1 mg IM ASDIRECTED PRN 01/14/20 20:08 EKG 12 Lead [EKG Documentation Completion] [RC] STAT 01/14/20 20:45 DOPamine/Dextrose 5%-Water [DOPamine in D5W 400 MG/250 ML] 400 mg in 250 ml IV ASDIRECTED 01/14/20 21:14 Glucagon,Human Recombinant [GlucaGen] 1 mg IM ASDIRECTED PRN - Assessment/Plan Last 24 Hours: My Active Orders 01/14/20 19:25 RT Aerosol Therapy [RC] ASDIRECTED Dextrose 50% in Water 50 ml IV ASDIRECTED PRN Glucagon,Human Recombinant [GlucaGen] 1 mg IM ASDIRECTED PRN 01/14/20 20:08 EKG 12 Lead [EKG Documentation Completion] [RC] STAT 01/14/20 20:45 DOPamine/Dextrose 5%-Water [DOPamine in D5W 400 MG/250 ML] 400 mg in 250 ml IV ASDIRECTED 01/14/20 21:14 Glucagon,Human Recombinant [GlucaGen] 1 mg IM ASDIRECTED PRN
[2020-01-14] MEDS ORDERED: Calcium Gluconate 10% 1 GM/10 ML SDV IVPUSH ONE (19:24)
[2020-01-14] MEDS ORDERED: Glucagon,Human Recombinant 1 MG Vial IM PRN ×3 (19:25→21:23)
[2020-01-14] MEDS ORDERED: 50% Dextrose in Water 50 ML Syringe IVPUSH ONE ×2 (19:25→21:16)
[2020-01-14] MEDS ORDERED: 50% Dextrose in Water 50 ML Syringe IV PRN ×2 (19:25→21:23)
[2020-01-14] MEDS ORDERED: Insulin Regular, Human 100 Units/ML 10 ML Vial IVPUSH ONE ×2 (19:25→21:23)
[2020-01-14] MEDS ORDERED: Albuterol 0.083% 2.5 MG/3 ML Neb Soln NEB ONE ×2 (19:25→21:14)
[2020-01-14] MEDS ORDERED: Sodium Bicarbonate 8.4% 50 MEQ/50 ML Syringe IVPUSH ONE (19:27)
[2020-01-14] MEDS ORDERED: DOPamine/Dextrose 5%-Water 400 MG/250 ML BAG IV SCH ×2 (20:15→20:45)
--- NOTE | 2020-01-14 20:29 | PCM.SN.2 ---
- Free Text/Narrative Note: Brief screening/triage note. 64/M w/PMH ESRD on HD (last HD yesterday - full run), CHF, atrial fibrillation on warfarin, pleural effusion s/p thoracentesis, COPD presenting with dyspnea. Reports 1 week history of gradually worsening dyspnea. Reportedly had a full run of HD yesterday. Ill-appearing. Noted to be bradycardia and hypotensive. 12-lead ECG shows no acute ischemia, does look to be in a 2nd degree type II heart block. HR 35-50. Initial manual BP 80/40 systolic. Pacer pads placed. Peripheral IV to RUE by RN. I placed a 16 gauge IV in the right EJ. Given 1 L lactated ringers by pressure infuser bag. Labs ordered and pending at shift change. Concern for hyperkalemia. I performed a limited cardiac bedside ultrasound which showed very diminished LV function, no pericardial effusion. No B-lines in the lung windows. CXR looks like possible pulmonary edema, radiology read pending. Dr. Hylton assumed care prior to labs resulting.
[2020-01-14] MEDS ORDERED: Insulin Regular, Human 100 Units/ML 10 ML Vial SUBCUT ONE (21:14)
== END 2020-01-14 21:18 ==
LOC: MW.ED 18:03
DX: E87.5 Hyperkalemia (principal); R00.1 Bradycardia, unspecified; I95.9 Hypotension, unspecified; N19 Unspecified kidney failure; I10 Essential (primary) hypertension; I48.91 Unspecified atrial fibrillation; J45.909 Unspecified asthma, uncomplicated; Z20.828 Contact with and (suspected) exposure to other viral communicable diseases; Z91.018 Allergy to other foods; Z79.899 Other long term (current) drug therapy; Z79.01 Long term (current) use of anticoagulants; Z79.02 Long term (current) use of antithrombotics/antiplatelets
CPT/HCPCS: 36415; 71045; 80053; 83605; 83735; 83880; 84100; 84132; 84443; 84484; 85025; 85610; 93005; 96361; 96365; 96375; 99285; J0610; J1265; J7120; U0002; 93010; 99291; J1815-GY